=== PATIENT | female | born 1965 | race Caucasian/White ===

== ENCOUNTER → 2016-05-13 | Outpatient (REF) | payer OTHER ==
[2016-05-13 18:12] LABS: ANION GAP 9 MEQ/L (8-16); BLOOD UREA NITROGEN 19 MG/DL (7-18); CALCIUM LEVEL 8.8 MG/DL (8.5-10.1); CARBON DIOXIDE LEVEL 27 MEQ/L (21-32); CHLORIDE LEVEL 107 MEQ/L (98-107); CHOLESTEROL LEVEL 187 MG/DL (<200); CREATININE FOR GFR 0.96 MG/DL (0.55-1.02); GLOMERULAR FILTRATION RATE > 60.0 (>51); GLUCOSE, FASTING 72 MG/DL (70-105); POTASSIUM SERUM 4.7 MEQ/L (3.5-5.1); SODIUM LEVEL 143 MEQ/L (136-145); TRIGLYCERIDES LEVEL 128 MG/DL (<150)
== END ==
LOC: M SFHCLERA 11:00
PROVIDERS: ATTEND Family Medicine
DX: Z00.00 Encounter for general adult medical examination without abnormal findings (principal)

== ENCOUNTER → 2016-05-17 | Outpatient (CLI) | payer OTHER ==
--- NOTE | 2016-05-20 14:12 | REP ---
MRI LUMBAR SPINE WITHOUT CONTRAST: 05/17/2016. Clinical history: Low back pain. Radiculopathy. Osteoarthritis. Technique: Sagittal and axial T1 and T2 sequences provided. There were no prior studies. Findings: Normal lordosis is maintained. Vertebral body heights and marrow signal are normal throughout. There is loss of disc water signal at all levels in the lumbar spine and loss of disc height at L3-4 and above. The T10-11, T11-12 and T12-L1 levels all show mild disc bulges without significant spinal stenosis or gross evidence for foraminal encroachment. At L1-2 no significant spinal or foraminal stenosis noted. At L2-3 no significant spinal or foraminal stenosis noted. At L3-L4 broad-based disc bulge seen which extends into the foramen on both sides but no central canal stenosis, foraminal encroachment or nerve root compression. At L4-5 broad-based disc bulge extending into the left foramen flattening ventral thecal sac but not causing significant central canal stenosis or foraminal encroachment. At L5-S1 there is a small central disc protrusion with a broad-based disc bulge. This does not abut or displace the S1 nerve roots in the central canal. Cross-sectional area of the central canal adequate and the foramina show no nerve root compression. Impression: 1. Multilevel degenerative disc changes as described with small disc protrusion at L5-S1 not causing central canal stenosis and no foraminal encroachment at any level. Minimal disc bulges at other levels as described above. No compression deformity or destructive lesion. Signed by Joseph Benavidez MD 05/20/2016 02:34 P
== END ==
LOC: M RAD 16:25
PROVIDERS: ATTEND Family Medicine
DX: M47.25 Other spondylosis with radiculopathy, thoracolumbar region (principal)

== ENCOUNTER → 2016-06-18 | Outpatient (CLI) | payer OTHER ==
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
== END ==
LOC: M PAIN 13:20
PROVIDERS: ATTEND Nurse Practitioner Family
DX: G89.29 Other chronic pain (principal); M53.3 Sacrococcygeal disorders, not elsewhere classified; M51.26 Other intervertebral disc displacement, lumbar region; M54.16 Radiculopathy, lumbar region; E78.5 Hyperlipidemia, unspecified; M19.90 Unspecified osteoarthritis, unspecified site; I10 Essential (primary) hypertension; Z79.1 Long term (current) use of non-steroidal anti-inflammatories (NSAID); Z79.899 Other long term (current) drug therapy; Z91.410 Personal history of adult physical and sexual abuse

== ENCOUNTER → 2016-07-12 | Outpatient (CLI) | payer OTHER ==
[~2016-07-12] MED LIST: BUPIVACAINE HCL 0.25% 30 ML VIAL As Ordered ONE; ISOVUE-M 300 61% 15ML VIAL (Q9967) As Ordered ONE; LIDOCAINE 1% SDV INJ 30 ML VIAL As Ordered ONE; TRIAMCINOLONE ACETONIDE SUSP 40 MG/ML VIAL (J3301) As Ordered ONE; diazePAM 5 MG TAB As Ordered ONE; oxyCODONE 5MG TAB As Ordered ONE
--- NOTE | 2016-07-12 15:06 | REP ---
Partial SI joint series: Single view. History: SI joint injection for pain. 15 seconds of fluoroscopy time is reported. Findings: A single fluoroscopically obtained intraprocedural spot radiograph documents needle position and contrast injection associated with injection procedure. Signed by Darin Celis MD 07/12/2016 03:52 P
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
== END ==
LOC: M PAIN 11:00
PROVIDERS: ATTEND Anesthesiology
DX: G89.29 Other chronic pain (principal); M46.1 Sacroiliitis, not elsewhere classified; M54.5 Low back pain; Z79.899 Other long term (current) drug therapy; E78.5 Hyperlipidemia, unspecified; I10 Essential (primary) hypertension; F34.1 Dysthymic disorder; M47.816 Spondylosis without myelopathy or radiculopathy, lumbar region; F41.1 Generalized anxiety disorder
CPT/HCPCS: G0260; J3301; Q9967

== ENCOUNTER → 2016-08-28 | Outpatient (CLI) | payer OTHER ==
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
== END ==
LOC: M PAIN 13:20
PROVIDERS: ATTEND Nurse Practitioner Family
DX: G89.29 Other chronic pain (principal); M53.3 Sacrococcygeal disorders, not elsewhere classified; M51.26 Other intervertebral disc displacement, lumbar region; M54.16 Radiculopathy, lumbar region; E78.5 Hyperlipidemia, unspecified; M19.90 Unspecified osteoarthritis, unspecified site; I10 Essential (primary) hypertension; J30.89 Other allergic rhinitis; K59.00 Constipation, unspecified; Z79.1 Long term (current) use of non-steroidal anti-inflammatories (NSAID); Z79.52 Long term (current) use of systemic steroids; Z79.899 Other long term (current) drug therapy

== ENCOUNTER → 2016-08-30 | Outpatient (CLI) | payer OTHER ==
--- NOTE | 2016-08-31 07:26 | REP ---
LEFT SHOULDER: Four views left shoulder performed. There is no acute fracture or dislocation. Joint spaces are unremarkable in appearance. There are multiple old left rib fractures with healing callus formation. IMPRESSION: Unremarkable appearance left shoulder. Further evaluation may be made with MRI. Signed by Melchor Rabago MD 08/31/2016 07:44 P
== END ==
LOC: M LRY 15:24
PROVIDERS: ATTEND Family Medicine
DX: M75.42 Impingement syndrome of left shoulder (principal)

== ENCOUNTER 2016-10-22 10:15 | Emergency (ER) | payer OTHER ==
[~2016-10-22] VITALS: Ht 160 cm; Wt 68.8 kg
[2016-10-22 10:15] VITALS: BP 139/90
[2016-10-22] MEDS ORDERED: CELE1CAP4 PO (10:28)
[2016-10-22] MEDS ORDERED: SOMA250T PO (10:28)
[2016-10-22] MEDS ORDERED: BUPR10TASR PO (10:28)
[2016-10-22] MEDS ORDERED: FURO20TA2 PO (10:28)
[2016-10-22] MEDS ORDERED: ATOR40TA75 PO (10:28)
[2016-10-22] MEDS ORDERED: HYDR25TAB PO (10:28)
[2016-10-22] MEDS ORDERED: CLAR5TAB7 PO (10:50)
[2016-10-22] MEDS ORDERED: AUGM875T28 PO (10:50)
[2016-10-23] MEDS ORDERED: DIFL150T PO (08:08)
== END 2016-10-22 11:05 | disposition home or self-care (01) ==
LOC: M ED 10:15
DX: J01.90 Acute sinusitis, unspecified (principal); L60.0 Ingrowing nail

== ENCOUNTER → 2017-01-13 | Outpatient (REF) | payer OTHER ==
[~2017-01-13] MED LIST changes: +ATOR40TA75 PO; +AUGM875T28 PO; -BUPIVACAINE HCL 0.25% 30 ML VIAL As Ordered ONE; +BUPR10TASR PO; +CELE1CAP4 PO; +CLAR5TAB7 PO; +DIFL150T PO; +FURO20TA2 PO; +HYDR25TAB PO; -ISOVUE-M 300 61% 15ML VIAL (Q9967) As Ordered ONE; -LIDOCAINE 1% SDV INJ 30 ML VIAL As Ordered ONE; +SOMA250T PO; -TRIAMCINOLONE ACETONIDE SUSP 40 MG/ML VIAL (J3301) As Ordered ONE; -diazePAM 5 MG TAB As Ordered ONE; -oxyCODONE 5MG TAB As Ordered ONE
== END ==
LOC: M SFHCLERA 14:57
PROVIDERS: ATTEND Nurse Practitioner Family
DX: J02.9 Acute pharyngitis, unspecified (principal)

== ENCOUNTER → 2017-03-14 | Outpatient (CLI) | payer OTHER ==
--- NOTE | 2017-03-14 12:25 | REP ---
Clinical: thoracic pain. Technique: AP, lateral, and swimmers views. Findings: Alignment and kyphosis is maintained. Vertebral bodies intact. No acute fracture / compression injury or subluxation. Mild age related changes include anterior spurring at multiple thoracic levels. Impression: Minimal age-related degenerative changes. Signed by Bronson Sampson MD 03/14/2017 12:17 P
== END ==
LOC: M LRY 10:04
PROVIDERS: ATTEND Nurse Practitioner Family
DX: M62.838 Other muscle spasm (principal)

== ENCOUNTER → 2017-04-18 | Outpatient (CLI) | payer OTHER | LOC: M LRY 13:19 | DX: R05 Cough (principal) | CPT/HCPCS: 71020 ==

== ENCOUNTER → 2017-04-24 | Outpatient (CLI) | payer OTHER | LOC: M LRY 11:05 | DX: R05 Cough (principal) | CPT/HCPCS: 71046 ==

== ENCOUNTER → 2017-07-10 | Outpatient (REF) | payer OTHER | LOC: M SFHCLERA 17:06 | DX: J02.9 Acute pharyngitis, unspecified (principal) ==

== ENCOUNTER → 2017-10-21 | Outpatient (REF) | payer OTHER ==
[2017-10-21 17:22] LABS: BASO # 0.1 10^3/uL (0.0-0.2); BASO % 0.6 % (0.0-1.0); EOS # 0.2 10^3/uL (0.0-0.50); EOS % 1.3 % (0.0-3.0); HEMATOCRIT 44.4 % (36.0-47.0); HEMOGLOBIN 15.6 g/dl (12.0-15.5); IMMATURE GRANULOCYTE % 0.3 % (0-3.0); LYMPH # 3.6 10^3/uL (1.5-4.5); LYMPH % 28.6 % (24.0-44.0); MEAN CORPUSCULAR HEMOGLOBIN 31.8 pg (27.0-33.0); MEAN CORPUSCULAR HGB CONC 35.1 g/dl (32.0-36.5); MEAN CORPUSCULAR VOLUME 90.4 fl (80.0-96.0); MONO # 0.6 10^3/uL (0.0-0.8); MONO % 5.1 % (0.0-5.0); NEUTROPHILS # 8.1 10^3/uL (1.8-7.7); NEUTROPHILS % 64.1 % (36.0-66.0); PLATELET COUNT, AUTOMATED 319 10^3/uL (150-450); RED BLOOD COUNT 4.91 10^6/uL (4.00-5.40); RED CELL DISTRIBUTION WIDTH 12.4 % (11.5-14.5); WHITE BLOOD COUNT 12.6 10^3/uL (4.0-10.0)
[2017-10-21 17:37] LABS: ALBUMIN 4.1 GM/DL (3.2-5.2); ALBUMIN/GLOBULIN RATIO 1.21 (1.00-1.93); ALKALINE PHOSPHATASE 92 U/L (45-117); ALT/SGPT 28 U/L (12-78); ANION GAP 10 MEQ/L (8-16); AST/SGOT 10 U/L (7-37); BILIRUBIN,TOTAL 0.3 MG/DL (0.2-1.0); BLOOD UREA NITROGEN 26 MG/DL (7-18); CALCIUM LEVEL 9.3 MG/DL (8.5-10.1); CARBON DIOXIDE LEVEL 29 MEQ/L (21-32); CHLORIDE LEVEL 102 MEQ/L (98-107); CREATININE FOR GFR 1.01 MG/DL (0.55-1.30); FREE T4 1.01 NG/DL (0.76-1.46); GLOMERULAR FILTRATION RATE > 60.0 (>51); GLUCOSE, FASTING 92 MG/DL (70-100); POTASSIUM SERUM 3.8 MEQ/L (3.5-5.1); SODIUM LEVEL 141 MEQ/L (136-145); TOTAL PROTEIN 7.5 GM/DL (6.4-8.2)
== END ==
LOC: M SFHCLERA 11:05
DX: R53.83 Other fatigue (principal)
CPT/HCPCS: 84443

== ENCOUNTER → 2017-11-04 | Outpatient (REF) | payer OTHER | LOC: M SFHCLERA 11:25 | DX: J02.9 Acute pharyngitis, unspecified (principal) ==

== ENCOUNTER → 2017-11-04 | Outpatient (CLI) | payer OTHER | LOC: M LRY 12:07 | DX: R06.2 Wheezing (principal) | CPT/HCPCS: 71046 ==

== ENCOUNTER → 2017-11-10 | Outpatient (REF) | payer OTHER ==
[2017-11-10 17:24] LABS: RHEUMATOID FACTOR QUANT < 10.0 IU/ML (<15.0)
[2017-11-10 17:24] LABS: C REACTIVE PROTEIN QUANTITATIV < 0.30 MG/DL (0.00-0.30)
[2017-11-10 17:34] LABS: BASO # 0.1 10^3/uL (0.0-0.2); BASO % 0.5 % (0.0-1.0); EOS # 0.1 10^3/uL (0.0-0.50); EOS % 1.1 % (0.0-3.0); HEMATOCRIT 45.5 % (36.0-47.0); HEMOGLOBIN 15.9 g/dl (12.0-15.5); IMMATURE GRANULOCYTE % 0.5 % (0-3.0); LYMPH % 35.9 % (24.0-44.0); MEAN CORPUSCULAR HEMOGLOBIN 31.5 pg (27.0-33.0); MEAN CORPUSCULAR HGB CONC 34.9 g/dl (32.0-36.5); MEAN CORPUSCULAR VOLUME 90.1 fl (80.0-96.0); MONO # 0.5 10^3/uL (0.0-0.8); MONO % 4.7 % (0.0-5.0); NEUTROPHILS # 6.3 10^3/uL (1.8-7.7); NEUTROPHILS % 57.3 % (36.0-66.0); PLATELET COUNT, AUTOMATED 343 10^3/uL (150-450); RED BLOOD COUNT 5.05 10^6/uL (4.00-5.40); RED CELL DISTRIBUTION WIDTH 12.3 % (11.5-14.5); WHITE BLOOD COUNT 11.1 10^3/uL (4.0-10.0)
[2017-11-10 18:00] LABS: ERYTHROCYTE SEDIMENTATION RATE 9 mm/hr (0-30); REASON FOR REVIEW WBC/LEUKEMIA/BLAST; SLIDE REVIEW Report; SOURCE PERIPHERAL SMEAR
[2017-11-13 00:09] LABS: ANA (HEP2) Negative (.)
== END ==
LOC: M SFHCLERA 12:28
DX: D72.829 Elevated white blood cell count, unspecified (principal)

== ENCOUNTER → 2018-01-01 | Outpatient (REF) | payer OTHER ==
[2018-01-04 00:06] LABS: Lyme Disease IgG Ab 18 kDa Ban Absent (.); Lyme Disease IgG Ab 23 kDa Ban Absent (.); Lyme Disease IgG Ab 28 kDa Ban Absent (.); Lyme Disease IgG Ab 30 kDa Ban Absent (.); Lyme Disease IgG Ab 39 kDa Ban Absent (.); Lyme Disease IgG Ab 41 kDa Ban Absent (.); Lyme Disease IgG Ab 45 kDa Ban Absent (.); Lyme Disease IgG Ab 58 kDa Ban Absent (.); Lyme Disease IgG Ab 66 kDa Ban Absent (.); Lyme Disease IgG Ab 93 kDa Ban Absent (.); Lyme Disease IgG West Blot Int Negative (.); Lyme Disease IgG/IgM Antibodie <0.91 ISR (0.00-0.90); Lyme Disease IgM Ab 23 kDa Ban Present (.); Lyme Disease IgM Ab 39 kDa Ban Present (.); Lyme Disease IgM Ab 41 kDa Ban Present (.); Lyme Disease IgM Ab Quantitati 0.98 index (0.00-0.79); Lyme Disease IgM West Blot Int Positive (.)
== END ==
LOC: M SFHCLERA 08:44
DX: R53.83 Other fatigue (principal)
CPT/HCPCS: 86617

== ENCOUNTER 2018-03-31 16:24 | Emergency (ER) | payer OTHER ==
[2018-03-31] MEDS: ONDANSETRON 4 MG ORAL DISINTEGRATING TAB (Q0162 PER 1MG) PO (18:05)
[2018-03-31] MEDS: PERCOCET 5MG/325MG TAB PO (18:05)
== END 2018-03-31 19:07 | disposition home or self-care (01) ==
LOC: M ED 16:24
DX: S06.0X9A Concussion with loss of consciousness of unspecified duration, initial encounter (principal); S43.401A Unspecified sprain of right shoulder joint, initial encounter; S13.4XXA Sprain of ligaments of cervical spine, initial encounter; S40.012A Contusion of left shoulder, initial encounter; V49.40XA Driver injured in collision with unspecified motor vehicles in traffic accident, initial encounter; I10 Essential (primary) hypertension; E78.5 Hyperlipidemia, unspecified; J44.9 Chronic obstructive pulmonary disease, unspecified; F17.210 Nicotine dependence, cigarettes, uncomplicated
CPT/HCPCS: Q0162

== ENCOUNTER → 2018-05-13 | Outpatient (REF) | payer OTHER ==
[~2018-05-13] MED LIST changes: +CYCL10TA PO; +CYCL5TAB; +HYDR-3713; +TYLE650T35 PO; +ZOFR4TAB14 PO
[2018-05-13 13:34] LABS: HEMATOCRIT 47.7 % (36.0-47.0); HEMOGLOBIN 17.4 g/dl (12.0-15.5); MEAN CORPUSCULAR HEMOGLOBIN 31.9 pg (27.0-33.0); MEAN CORPUSCULAR HGB CONC 36.5 g/dl (32.0-36.5); MEAN CORPUSCULAR VOLUME 87.5 fl (80.0-96.0); PLATELET COUNT, AUTOMATED 388 10^3/uL (150-450); RED BLOOD COUNT 5.45 10^6/uL (4.00-5.40)
[2018-05-13 13:45] LABS: APPEARANCE, URINE HAZY (CLEAR); BACTERIA, URINE AUTO 1+ (NEGATIVE); BILIRUBIN, URINE AUTO NEGATIVE (NEGATIVE); BLOOD, URINE BLOOD NEGATIVE (NEGATIVE); COLOR, URINE YELLOW (YELLOW); GLUCOSE, URINE (UA) AUTO NEGATIVE (NEGATIVE); KETONE, URINE AUTO NEGATIVE (NEGATIVE); LEUKOCYTE ESTERASE, URINE AUTO 2+ (NEGATIVE); NITRITE, URINE AUTO NEGATIVE (NEGATIVE); PROTEIN, URINE AUTO NEGATIVE (NEGATIVE); RBC, URINE AUTO 1 /HPF (0-3); SPECIFIC GRAVITY URINE AUTO 1.012 (1.002-1.035); SQUAMOUS EPITHELIAL CELL UR AU 3 /HPF (0-6); UROBILINOGEN, URINE AUTO 0.2 mg/dL (0.0-2.0); WBC, URINE AUTO 7 /HPF (0-3)
[2018-05-13 13:59] LABS: WHITE BLOOD COUNT 14.7 10^3/uL (4.0-10.0)
[2018-05-13 14:03] LABS: EOSINOPHILS 3 % (0-5); LYMPHOCYTES 34 % (16-52); MONOCYTES 13 % (0-8); NEUTROPHILS 50 % (35-75); PLATELET ESTIMATE NORMAL (NORMAL)
[2018-05-13 15:16] LABS: ERYTHROCYTE SEDIMENTATION RATE 2 mm/hr (0-30)
== END ==
LOC: M LABDRAW1 12:04
PROVIDERS: ATTEND Internal Medicine Endocrinology, Diabetes & Metabolism
DX: M54.2 Cervicalgia (principal)

== ENCOUNTER → 2018-07-04 | Outpatient (REF) | payer OTHER | LOC: M SFHCLERA 17:02 | PROVIDERS: ATTEND Physician Assistant | DX: R50.9 Fever, unspecified (principal) ==

== ENCOUNTER → 2018-08-03 | Outpatient (REF) | payer OTHER ==
[2018-08-03 18:53] LABS: APPEARANCE, URINE HAZY (CLEAR); BACTERIA, URINE AUTO 1+ (NEGATIVE); BILIRUBIN, URINE AUTO NEGATIVE (NEGATIVE); BLOOD, URINE BLOOD NEGATIVE (NEGATIVE); COLOR, URINE YELLOW (YELLOW); GLUCOSE, URINE (UA) AUTO NEGATIVE (NEGATIVE); KETONE, URINE AUTO NEGATIVE (NEGATIVE); LEUKOCYTE ESTERASE, URINE AUTO NEGATIVE (NEGATIVE); MUCUS, URINE SMALL (NEGATIVE); NITRITE, URINE AUTO NEGATIVE (NEGATIVE); PROTEIN, URINE AUTO NEGATIVE (NEGATIVE); RBC, URINE AUTO 0 /HPF (0-3); SPECIFIC GRAVITY URINE AUTO 1.011 (1.002-1.035); SQUAMOUS EPITHELIAL CELL UR AU 2 /HPF (0-6); UROBILINOGEN, URINE AUTO 0.2 mg/dL (0.0-2.0); WBC, URINE AUTO 2 /HPF (0-3)
== END ==
LOC: M SFHCLERA 13:12
PROVIDERS: ATTEND Family Medicine
DX: N39.41 Urge incontinence (principal)

== ENCOUNTER 2018-09-07 10:49 | Emergency (ER) | payer OTHER ==
[~2018-09-07] VITALS: Ht 160 cm; Wt 72.7 kg
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
[2018-09-07] MEDS ORDERED: MORPHINE 4 MG/ML 1ML VIAL/SYRINGE (J2270) IV ONE (11:45)
[2018-09-07] MEDS ORDERED: ONDANSETRON 4MG/2ML VIAL (J2405) IV ONE (11:45)
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
[2018-09-07] MEDS ORDERED: POTA10TA17 PO (12:15)
[2018-09-07] MEDS ORDERED: FURO40TA2 PO (12:15)
[2018-09-07] MEDS ORDERED: PSEU30TA85 PO (12:15)
[2018-09-07] MEDS ORDERED: CELE1CAP4 PO (12:15)
[2018-09-07] MEDS ORDERED: ATOR40TA75 PO (12:15)
[2018-09-07] MEDS ORDERED: FLON1SPR NARES (12:15)
[2018-09-07] MEDS ORDERED: BUPR300T34 PO (12:15)
[2018-09-07] MEDS ORDERED: LACT10SO29 PO (12:15)
[2018-09-07] MEDS ORDERED: TOPI50TA9 PO (12:15)
[2018-09-07] MEDS ORDERED: HYDR25TAB PO (12:15)
[2018-09-07] MEDS ORDERED: AUGM875T28 PO (12:15)
[2018-09-07] MEDS ORDERED: OXYC1TAB23 PO (12:15)
[2018-09-07 12:20] LABS: BASO # 0.1 10^3/uL (0.0-0.2); BASO % 0.8 % (0.0-1.0); EOS # 0.1 10^3/uL (0.0-0.50); EOS % 0.7 % (0.0-3.0); HEMOGLOBIN 15.8 g/dl (12.0-15.5); LYMPH # 3.3 10^3/uL (1.5-4.5); LYMPH % 30.2 % (24.0-44.0); MEAN CORPUSCULAR HEMOGLOBIN 32.2 pg (27.0-33.0); MEAN CORPUSCULAR HGB CONC 35.9 g/dl (32.0-36.5); MEAN CORPUSCULAR VOLUME 89.6 fl (80.0-96.0); MONO # 0.8 10^3/uL (0.0-0.8); MONO % 7.5 % (0.0-5.0); NEUTROPHILS # 6.5 10^3/uL (1.8-7.7); NEUTROPHILS % 60.2 % (36.0-66.0); PLATELET COUNT, AUTOMATED 319 10^3/uL (150-450); RED BLOOD COUNT 4.91 10^6/uL (4.00-5.40); WHITE BLOOD COUNT 10.9 10^3/uL (4.0-10.0)
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
[2018-09-07 12:46] LABS: CALCIUM LEVEL 9.6 MG/DL (8.5-10.1); CREATININE FOR GFR 1.06 MG/DL (0.55-1.30); GLOMERULAR FILTRATION RATE 57.7 (>51); POTASSIUM SERUM 2.5 MEQ/L (3.5-5.1)
[2018-09-07 12:59] LABS: MAGNESIUM LEVEL 1.8 MG/DL (1.8-2.4)
--- NOTE | 2018-09-07 13:05 | REP ---
PELVIS, SINGLE VIEW: Single AP view of the pelvis is performed and demonstrates no fracture, dislocation, or intrinsic bone disease. IMPRESSION: No fracture or dislocation. Electronically Signed by Melchor Rabago MD 09/07/2018 07:48 P
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
--- NOTE | 2018-09-07 13:06 | REP ---
LEFT HIP, TWO VIEWS: There is no evidence of an acute fracture, dislocation or intrinsic bone disease. IMPRESSION: No fracture or dislocation. Electronically Signed by Melchor Rabago MD 09/07/2018 07:48 P
--- NOTE | 2018-09-07 13:11 | REP ---
LEFT FEMUR, AP AND LATERAL: There is no evidence of an acute fracture, dislocation or intrinsic bone disease. IMPRESSION: No fracture or dislocation. Electronically Signed by Melchor Rabago MD 09/07/2018 07:48 P
[2018-09-07] MEDS ORDERED: K-TA1TAB PO (13:48)
[2018-09-07] MEDS ORDERED: PERC5TAB12 PO (13:49)
[2018-09-07] MEDS ORDERED: PERCOCET 5MG/325MG TAB PO ONE (14:00)
[2018-09-07 14:06] VITALS: BP 124/82
[2018-09-07] MEDS ORDERED: POTASSIUM CHLORIDE 10 MEQ SR TABLET PO ONE ×2 (14:15→20:00)
--- NOTE | 2018-09-07 23:54 | ECGEPIP ---
Stationary ECG Study [facility] - ED Test Date: 2018-09-07 Pat Name: CHANDA BOWIE Department: Room: - Gender: F Coding Assistant: TC : 1965 Requested By: Sirisha Epperson Order Number: [id number] Reading MD: Juvenal Awad Measurements Intervals [place] Rate: 80 P: 55 SC: 151 QRS: -47 QRSD: 106 T: 17 QT: 387 QTc: 447 Interpretive Statements SINUS RHYTHM POSSIBLE LEFT ATRIAL ENLARGEMENT INCOMPLETE RIGHT BUNDLE BRANCH BLOCK Left anterior fascicular block Comparison tracing not on file Electronically Signed On 09-07-2018 23:54:28 EDT by Juvenal Awad
== END 2018-09-07 14:28 | disposition home or self-care (01) ==
LOC: EDBD 10:49 → M ED 10:49
DX: M54.2 Cervicalgia (principal); M54.9 Dorsalgia, unspecified; E87.6 Hypokalemia; V49.40XA Driver injured in collision with unspecified motor vehicles in traffic accident, initial encounter; Y92.9 Unspecified place or not applicable; Y93.9 Activity, unspecified; Y99.9 Unspecified external cause status; R00.1 Bradycardia, unspecified; I10 Essential (primary) hypertension; M51.26 Other intervertebral disc displacement, lumbar region; M51.27 Other intervertebral disc displacement, lumbosacral region; M47.812 Spondylosis without myelopathy or radiculopathy, cervical region; Z79.899 Other long term (current) drug therapy
CPT/HCPCS: 70450; 71045; 72125; 72128; 72131; 72170; 73502; 73552; 73590; 80048; 83735; 85025; 86850; 86900; 86901; 93005; 96374; 96375; 99285; J2270; J2405

== ENCOUNTER → 2018-10-05 | Outpatient (CLI) | payer OTHER ==
[~2018-10-05] MED LIST changes: +BUPR300T34 PO; +FLON1SPR NARES; +FURO40TA2 PO; +K-TA1TAB PO; +LACT10SO29 PO; +OXYC1TAB23 PO; +PERC5TAB12 PO; +POTA10TA17 PO; +PSEU30TA85 PO; +TOPI50TA9 PO
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
== END ==
LOC: M LRY 11:41
PROVIDERS: ATTEND Nurse Practitioner Family
DX: R06.02 Shortness of breath (principal)

== ENCOUNTER → 2019-01-14 | Outpatient (CLI) | payer OTHER ==
[~2019-01-14] MED LIST changes: -BUPR300T34 PO; +BUPR300T92 PO
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
== END ==
LOC: M LRY 13:45
PROVIDERS: ATTEND Physician Assistant
DX: R06.2 Wheezing (principal)

== ENCOUNTER → 2019-01-28 | Outpatient (CLI) | payer OTHER, SELFPAY ==
[~2019-01-28] MED LIST changes: +BUPR300T34 PO; -BUPR300T92 PO
[2019-01-28 12:26] LABS: INR 0.94; PARTIAL THROMBOPLASTIN TIME 26.9 SECONDS (25.0-38.4); PROTHROMBIN TIME 12.3 SECONDS (11.8-14.0)
[2019-01-28 16:38] LABS: PLATELET COUNT, AUTOMATED 326 10^3/uL (150-450)
== END ==
LOC: M LRY 09:46
PROVIDERS: ATTEND Physician Assistant Surgical
DX: Z01.812 Encounter for preprocedural laboratory examination (principal); M47.22 Other spondylosis with radiculopathy, cervical region

== ENCOUNTER → 2019-01-28 | Outpatient (REF) | payer OTHER ==
[2019-01-28 12:52] LABS: CHOLESTEROL RISK RATIO 5.078 (<5)
== END ==
LOC: M SFHCLERA 09:17
PROVIDERS: ATTEND Family Medicine
DX: Z13.1 Encounter for screening for diabetes mellitus (principal); E78.2 Mixed hyperlipidemia

== ENCOUNTER 2020-04-28 12:48 | Emergency (ER) | payer OTHER ==
[~2020-04-28] VITALS: Ht 160 cm; Wt 75.7 kg
[~2020-04-28 12:48] MED LIST changes: +ACET650T61 PO; -BUPR300T34 PO; +BUPR300T92 PO; +CYCL-707 PO; -CYCL10TA PO; -LACT10SO29 PO; +LACT20EL PO; -TYLE650T35 PO
[2020-04-28] MEDS ORDERED: FURO20TA2 (13:00)
[2020-04-28] MEDS ORDERED: KETO10TAB (13:00)
[2020-04-28] MEDS ORDERED: methylPREDNISolone SUSP 40MG/ML 1ML VIAL (DEPO MEDROL) IM ONE (13:30)
--- NOTE | 2020-04-28 13:50 | REP ---
INDICATION: left shoulder pain, limited rom. Left shoulder: Three views. History: Left shoulder pain. Limited range of motion. COMPARISON: Comparison radiographs March 31, 2018.. TECHNIQUE: Three views. FINDINGS: The left glenohumeral and acromioclavicular joints are normally aligned. Periarticular soft tissues are unremarkable. No erosive changes are seen. There are multiple old healed rib fractures on the left. IMPRESSION: No acute bony abnormality. Old healed rib fractures on the left. <Electronically signed by Edinson Celis > 04/28/20 [id number]
[2020-04-28] MEDS ORDERED: methylPREDNISolone 125MG 2ML VIAL IM ONE (14:30)
[2020-04-28] MEDS ORDERED: VOLT1GEL15 TOP (14:47)
[2020-04-28 14:53] VITALS: BP 119/77
== END 2020-04-28 15:03 | disposition home or self-care (01) ==
LOC: M ED 12:48
DX: M25.512 Pain in left shoulder (principal); J44.9 Chronic obstructive pulmonary disease, unspecified; I10 Essential (primary) hypertension; E78.5 Hyperlipidemia, unspecified; Z79.899 Other long term (current) drug therapy; F17.210 Nicotine dependence, cigarettes, uncomplicated
CPT/HCPCS: 73030; 96372; 99283; J2930

== ENCOUNTER → 2020-05-26 | Outpatient (REF) | payer OTHER ==
[~2020-05-26] MED LIST changes: +FURO20TA2; +HYDR-3490 PO; -HYDR25TAB PO; +KETO10TAB; +VOLT1GEL15 TOP
[2020-05-26 12:51] LABS: APPEARANCE, URINE CLEAR (CLEAR); BACTERIA, URINE AUTO NEGATIVE (NEGATIVE); BILIRUBIN, URINE AUTO NEGATIVE (NEGATIVE); BLOOD, URINE BLOOD NEGATIVE (NEGATIVE); COLOR, URINE YELLOW (YELLOW); GLUCOSE, URINE (UA) AUTO NEGATIVE (NEGATIVE); KETONE, URINE AUTO NEGATIVE (NEGATIVE); LEUKOCYTE ESTERASE, URINE AUTO NEGATIVE (NEGATIVE); NITRITE, URINE AUTO NEGATIVE (NEGATIVE); PROTEIN, URINE AUTO NEGATIVE (NEGATIVE); RBC, URINE AUTO 0 /HPF (0-3); SPECIFIC GRAVITY URINE AUTO 1.015 (1.002-1.035); SQUAMOUS EPITHELIAL CELL UR AU 1 /HPF (0-6); UROBILINOGEN, URINE AUTO 0.2 mg/dL (0.0-2.0); WBC, URINE AUTO 0 /HPF (0-3)
[2020-05-26 12:56] LABS: BASO # 0.1 10^3/uL (0.0-0.2); BASO % 0.5 % (0.0-1.0); EOS # 0.2 10^3/uL (0.0-0.5); EOS % 1.6 % (0.0-3.0); HEMATOCRIT 43.8 % (36.0-47.0); HEMOGLOBIN 14.8 g/dl (12.0-15.5); LYMPH # 3.8 10^3/uL (1.5-5.0); MEAN CORPUSCULAR HEMOGLOBIN 30.8 pg (27.0-33.0); MEAN CORPUSCULAR HGB CONC 33.8 g/dl (32.0-36.5); MEAN CORPUSCULAR VOLUME 91.3 fl (80.0-96.0); MONO # 0.7 10^3/uL (0.0-0.8); MONO % 6.8 % (0.0-5.0); NEUTROPHILS % 51.8 % (36.0-66.0); PLATELET COUNT, AUTOMATED 285 10^3/uL (150-450); WHITE BLOOD COUNT 9.7 10^3/uL (4.0-10.0)
[2020-05-26 13:31] LABS: ERYTHROCYTE SEDIMENTATION RATE 11 mm/hr (0-30)
[2020-05-26 13:36] LABS: ALBUMIN 3.7 GM/DL (3.2-5.2); ALT/SGPT 25 U/L (12-78); BILIRUBIN,TOTAL 0.2 MG/DL (0.2-1.0); BLOOD UREA NITROGEN 25 MG/DL (7-18); CALCIUM LEVEL 9.9 MG/DL (8.5-10.1); CARBON DIOXIDE LEVEL 28 MEQ/L (21-32); CHLORIDE LEVEL 105 MEQ/L (98-107); CREATININE FOR GFR 0.86 MG/DL (0.55-1.30); FREE T4 0.89 NG/DL (0.76-1.46); GLOMERULAR FILTRATION RATE > 60.0 (>51); GLUCOSE, FASTING 92 MG/DL (70-100); POTASSIUM SERUM 4.4 MEQ/L (3.5-5.1); RHEUMATOID FACTOR QUANT < 10.0 IU/ML (<15.0); SODIUM LEVEL 140 MEQ/L (136-145); TOTAL PROTEIN 6.8 GM/DL (6.4-8.2)
[2020-05-26 13:46] LABS: HEPATITIS B SURFACE ANTIGEN NEGATIVE (NEGATIVE)
[2020-05-26 14:13] LABS: HEPATITIS C VIRUS ABY INDEX < 0.0 INDEX (<0.8)
[2020-05-26 14:14] LABS: HEPATITIS B CORE ANTIBODY IGM NEGATIVE (NEGATIVE)
[2020-05-26 14:16] LABS: HEPATITIS A ANTIBODY IGM NEGATIVE (NEGATIVE)
[2020-05-27 20:08] LABS: ANA (HEP2) Negative (.)
[2020-05-30 11:53] LABS: ALBUMIN 4.18 GM/DL (3.29-5.55); ALBUMIN % 61.4 % (55.8-66.1); ALPHA-1-GLOBULIN % 4.8 % (2.9-4.9); ALPHA-1-GLOBULINS 0.33 GM/DL (0.17-0.41); ALPHA-2-GLOBULINS % 11.8 % (7.1-11.8); BETA-1-GLOBULINS 0.43 GM/DL (0.28-0.60); BETA-1-GLOBULINS % 6.3 % (4.7-7.2); BETA-2-GLOBULINS 0.31 GM/DL (0.19-0.55); BETA-2-GLOBULINS % 4.6 % (3.2-6.5); GAMMA GLOBULIN % 11.1 % (11.1-18.8); GAMMA GLOBULINS 0.75 GM/DL (0.65-1.58)
== END ==
LOC: M SFHCLERA 10:58 → M SFHCADAM 10:58
PROVIDERS: ATTEND Family Medicine
DX: I10 Essential (primary) hypertension (principal); R21 Rash and other nonspecific skin eruption

== ENCOUNTER → 2020-09-12 | Outpatient (CLI) | payer OTHER ==
--- NOTE | 2020-09-12 11:03 | REP ---
INDICATION: LT SIDE NECK SWELLING COMPARISON: None. TECHNIQUE: Rabago scale and color evaluation using the linear high frequency transducer. FINDINGS: Directed ultrasound examination of the left supraclavicular region at the site of palpable mass demonstrates no obvious abnormality. IMPRESSION: No obvious abnormality by ultrasound. <Electronically signed by Bronson Sampson > 09/12/20 1058
== END ==
LOC: M RAD 10:24
PROVIDERS: ATTEND Nurse Practitioner Family
DX: R22.2 Localized swelling, mass and lump, trunk (principal)

== ENCOUNTER → 2020-09-19 | Outpatient (REF) | payer OTHER | LOC: M LAB REF 10:06 | PROVIDERS: ATTEND Family Medicine | DX: R10.13 Epigastric pain (principal) ==

== ENCOUNTER → 2020-10-17 | Outpatient (REF) | payer OTHER | LOC: M SFHCLERA 18:26 | PROVIDERS: ATTEND Nurse Practitioner Family | DX: R35.0 Frequency of micturition (principal) ==

== ENCOUNTER → 2021-02-08 | Outpatient (CLI) | payer OTHER ==
[~2021-02-08] MED LIST changes: +HYDR-3713 PO; +IBUP80TA PO; +KETO10TAB PO; +LISI20TA33 PO; +MUCI1TAB16 PO; +NASA0.9A NARES; -PSEU30TA85 PO; +PSEU30TA86 PO; +SENN-80 PO
== END ==
LOC: M LABSMTC 10:57
PROVIDERS: ATTEND Pediatrics
DX: Z20.822 Contact with and (suspected) exposure to COVID-19 (principal)
CPT/HCPCS: C9803; U0003

== ENCOUNTER 2021-02-10 09:55 | Emergency (ER) | payer OTHER ==
[~2021-02-10] VITALS: Ht 160 cm; Wt 74.5 kg
[~2021-02-10 09:55] MED LIST changes: -HYDR-3713 PO; -IBUP80TA PO; -KETO10TAB PO; -LISI20TA33 PO; -MUCI1TAB16 PO; -NASA0.9A NARES; -SENN-80 PO
--- OUTSIDE RECORDS SUMMARY | 2021-02-10 10:04 | CCD ---
Author Author [facility] Organization [facility] Address Unknown Phone Unavailable Care Team Providers Care Building Coordinator Name Role Phone Uri, Barby Unavailable PROBLEMS Type Condition ICD9-CM Code [id number] Code Onset Dates Condition S tatus W/U Status Risk SNOMED Code Notes Problem Hyperlipidemia, unspecified hyperlipidemia type E7 8.5 Active confirmed 30271114 Problem Arthritis M19.90 Active confirmed 5139132 Problem Essential hypertension I10 Active confirmed 68549548 Problem Cervical spondylosis M47.812 Active confirmed 756042600 Problem Constipation, unspecified constipation type K59.00 Active confirmed 26447654 Problem Generalized anxiety disorder F41.1 Active confirme d 32559846 Problem 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.816 Active confirmed 88991011 Problem Allergic rhinitis, unspecified seasonality, unspecifie d trigger J30.9 Active confirmed 74574959 Problem Mixed hyperlipidemia E78.2 Active confirmed 107918696 ALLERGIES Allergen (clinical drug ingredient) Drug/Non Drug Allergy do cumented on EMR Reaction Allergy Type Onset Date Status Pollen Pollen Unknown Drug Allergy Active ENCOUNTERS from 1965 to 2021-02-07 Encounter Location Date Provider Diagnosis [address] [phone] [place] [address] Jan, Barby Grewal IMMUNIZATIONS Vaccine Route Administration Date Status Influenza 6mo & up Fluzone Unknown Mar 14, 2017 Other s Influenza 6mo & up Fluzone Unknown May 13, 2016 Other s Influenza 6mo & up Fluzone Unknown Dec 20, 2015 Admin istered SOCIAL HISTORY Tobacco Use: Social History Observation Description Date Details (start date - stop date) Former Smoker Sex Assigned At : Social History Observation Description Sex Assigned At Unknown Education: Question Answer Notes Level of Education: Not finished High School Druze: Question Answer Notes Druze 32 None Sexual Hx: Question Answer Notes Had sex in the last 12 months (vaginal, oral, or anal)? No LMP: 1994 Have you ever had an STD? No Alcohol Screening: Question Answer Notes Did you have a drink containing alcohol in the past year? No Points 0 Interpretation Negative BMI Care Goal Follow-Up Question Answer Notes Above Normal BMI Follow-Up Dietary management educatio n, guidance, and counseling Tobacco Use: Question Answer Notes Are you a: former smoker REASON FOR REFERRAL No Information VITAL SIGNS No information MEDICATIONS Medication SIG (Take, Route, Frequency, Duration) Notes Start Da te End Date Status MiraLax 17 GM/SCOOP 17gms Orally Daily for 30 Days PRN May, Active Acetaminophen 500 MG 1 tablet as needed Orally every 6 hrs for 9 0 day(s) Apr, Active Wellbutrin XL 300 MG 1 tablet in the morning Orally Once a day Active Lisinopril 20 MG 1 tablet Orally Once a day Active Diflucan 150 MG 1 tablet Orally Daily for 2 days Can rep eat at 48 hours if symptoms have not resolved Sep, Not-Taking Senna 8.6 MG 2 capsules at bedtime as needed Orally Once a day for 90 Active Ketorolac Tromethamine 10 MG 1 tablet with food or mil k as needed Orally every 6 hrs for 30 Days Jul, Active Lipitor 40 MG 1 tablet Orally Once a day Active Omeprazole 20 MG 1 capsule 30 minutes before morning meal Orally Once a day for 30 day(s) Sep, Active PROCEDURES No Information RESULTS No Results REASON FOR VISIT possible COVID exposure w/ sx MEDICAL (GENERAL) HISTORY Type Description Date Medical History Hyperlipidemia, unspecified hyperlipidem ia type Medical History Arthritis Medical History Essential hypertension Medical History anxiety/depression Medical History allergic rhinitis Surgical History Thoracic T11-12 back surgery 1995 Surgical History Hysterectomy 1994 Surgical History Small toe on right foot Surgical History C 5-7 ACDF [place] 10/03/2020 Hospitalization History Childbirth 1991 Goals Section No Information Health Concerns No Information MEDICAL EQUIPMENT No Information MENTAL STATUS No Information FUNCTIONAL STATUS No Information ASSESSMENTS No Information PLAN OF TREATMENT No Information Insurance Providers Payer Name Payer Address Payer Phone Insured Name Patient Relati onship to Insured Coverage Start Date Coverage End Date [employer] [facility] [address] [facility] [phone] CHANDA BOWIE [employer] NO FAULT [address] [facility] [address] [phone] CHANDA BOWIE
--- OUTSIDE RECORDS SUMMARY | 2021-02-10 10:05 | CCD ---
Author Author [facility] Organization [facility] Address Unknown Phone Unavailable Care Team Providers Care Audit Clerks Supervisor Name Role Phone Tadeo Cervantes JR Unavailable Unavailable Tadeo Cervantes JR Unavailable Unavailable Tadeo Cervantes JR PA Unavailable Unavailable Tadeo Cervantes JR PA Unavailable Unavailable Tadeo Cervantes JR PA Unavailable Unavailable Caranam Tadeo SWANSON PA Unavailable Unavailable VanArnam Tadeo SWANSON PA Unavailable Unavailable VanArnam Tadeo SWANSON PA Unavailable Unavailable Tadeo Cervantes JR PA Unavailable Unavailable VanArnam Tadeo SWANSON PA Unavailable Unavailable VanArnam Tadeo SWANSON PA Unavailable Unavailable VanTadeo Newton JR PA Unavailable Unavailable VanArnam JR, W Ibrahima PA Unavailable Unavailable VanArnam JR, W Ibrahima PA Unavailable Unavailable VanArnam JR, W Ibrahima PA Unavailable Unavailable VanArnam JR, W Ibrahima PA Unavailable Unavailable VanArnam JR, W Ibrahima PA Unavailable Unavailable VanArnam JR, W Ibrahima PA Unavailable Unavailable VanArnam JR, W Ibrahima PA Unavailable Unavailable VanArnam JR, W Ibrahima PA Unavailable Unavailable VanArnam JR, W Ibrahima PA Unavailable Unavailable VanArnam JR, W Ibrahima PA Unavailable Unavailable VanArnam JR, W Ibrahima PA Unavailable Unavailable VanArnam JR, W Ibrahima PA Unavailable Unavailable VanArnam JR, W Ibrahima PA Unavailable Unavailable VanArnam JR, W Ibrahima PA Unavailable Unavailable VanArnam JR, W Ibrahima PA Unavailable Unavailable VanArnam JR, W Ibrahima PA Unavailable Unavailable VanArnam JR, W Ibrahima PA Unavailable Unavailable VanArnam JR, W Ibrahima PA Unavailable Unavailable VanArnam JR, W Ibrahima PA Unavailable Unavailable VanArnam JR, W Ibrahima PA Unavailable Unavailable VanArnam JR, W Ibrahima PA Unavailable Unavailable VanArnam JR, W Ibrahima PA Unavailable Unavailable VanArnam JR, W Ibrahima PA Unavailable Unavailable VanArnam JR, W Ibrahima PA Unavailable Unavailable VanArnam JR, W Ibrahima PA Unavailable Unavailable VanArnam JR, W Ibrahima PA Unavailable Unavailable VanArnam JR, W Ibrahima PA Unavailable Unavailable VanArnam JR, W Ibrahima PA Unavailable Unavailable VanArnam JR, W Ibrahima PA Unavailable Unavailable VanArnam JR, W Ibrahima PA Unavailable Unavailable VanArnam JR, W Ibrahima PA Unavailable Unavailable Julito HOYOS MD Unavailable Unavailable Julito HOYOS MD Unavailable Unavailable Julito HOYOS MD Unavailable Unavailable Julito HOYOS MD Unavailable Unavailable Julito HOYOS MD Unavailable Unavailable Julito HOYOS MD Unavailable Unavailable Julito HOYOS MD Unavailable Unavailable Julito HOYOS MD Unavailable Unavailable Julito HOYOS MD Unavailable Unavailable Julito HOYOS MD Unavailable Unavailable Julito HOYOS MD Unavailable Unavailable Julito HOYOS MD Unavailable Unavailable Julito HOYOS MD Unavailable Unavailable Julito HOYOS MD Unavailable Unavailable Julito HOYOS MD Unavailable Unavailable Julito HOYOS MD Unavailable Unavailable Julito HOYOS MD Unavailable Unavailable Julito HOYOS MD Unavailable Unavailable Julito HOYOS MD Unavailable Unavailable Julito HOYOS MD Unavailable Unavailable Julito HOYOS MD Unavailable Unavailable Julito HOYOS MD Unavailable Unavailable Julito HOYOS MD Unavailable Unavailable Julito HOYOS MD Unavailable Unavailable Julito HOOYS MD Unavailable Unavailable Julito HOYOS MD Unavailable Unavailable Julito HOYOS MD Unavailable Unavailable Julito HOYOS MD Unavailable Unavailable Julito HOYOS MD Unavailable Unavailable Julito HOYOS MD Unavailable Unavailable Julito HOYOS MD Unavailable Unavailable Julito HOYOS MD Unavailable Unavailable Julito HOYOS MD Unavailable Unavailable Julito HOYOS MD Unavailable Unavailable Julito HOYOS MD Unavailable Unavailable Julito HOYOS MD Unavailable Unavailable Julito HOYOS MD Unavailable Unavailable Julito HOYOS MD Unavailable Unavailable Julito HOYOS MD Unavailable Unavailable Julito HOYOS MD Unavailable Unavailable Julito HOYOS MD Unavailable Unavailable Julito HOYOS MD Unavailable Unavailable Julito HOYOS MD Unavailable Unavailable Julito HOYOS MD Unavailable Unavailable Julito HOYOS MD Unavailable Unavailable Julito HOYOS MD Unavailable Unavailable Julito HOYOS MD Unavailable Unavailable Julito HOYOS MD Unavailable Unavailable Julito HOYOS MD Unavailable Unavailable Nghia LION MD Unavailable Unavailable Nghia LION MD Unavailable Unavailable Nghia LION MD Unavailable Unavailable Nghia LION MD Unavailable Unavailable Nghia LION MD Unavailable Unavailable Nghia LION MD Unavailable Unavailable Nghia LION MD Unavailable Unavailable Nghia LION MD Unavailable Unavailable Nghia LION MD Unavailable Unavailable Nghia LION MD Unavailable Unavailable Nghia LION MD Unavailable Unavailable Nghia LION MD Unavailable Unavailable Nghia LION MD Unavailable Unavailable Nghia LION MD Unavailable Unavailable Nghia LION MD Unavailable Unavailable Nghia LION MD Unavailable Unavailable Nghia LION MD Unavailable Unavailable Nghia LION MD Unavailable Unavailable Nghia LION MD Unavailable Unavailable Nghia LION MD Unavailable Unavailable Nghia LION MD Unavailable Unavailable Nghia LION MD Unavailable Unavailable Nghia LION MD Unavailable Unavailable Nghia LION MD Unavailable Unavailable Nghia LION MD Unavailable Unavailable Nghia LION MD Unavailable Unavailable Nghia LION MD Unavailable Unavailable Nghia LION MD Unavailable Unavailable Nghia LION MD Unavailable Unavailable Nghia LION MD Unavailable Unavailable Nghia LION MD Unavailable Unavailable Nghia LION MD Unavailable Unavailable Nghia LION MD Unavailable Unavailable Nghia LION MD Unavailable Unavailable Nghia LION MD Unavailable Unavailable Nghia LION MD Unavailable Unavailable Nghia LION MD Unavailable Unavailable Nghia LION MD Unavailable Unavailable Nghia LION MD Unavailable Unavailable Nghia LION MD Unavailable Unavailable Nghia LION MD Unavailable Unavailable Nghia LION MD Unavailable Unavailable Nghia LION MD Unavailable Unavailable Nghia LION MD Unavailable Unavailable Nghia LION MD Unavailable Unavailable Nghia LION MD Unavailable Unavailable Nghia LION MD Unavailable Unavailable Nghia LION MD Unavailable Unavailable Nghia LION MD Unavailable Unavailable Nghia LION MD Unavailable Unavailable Nghia LION MD Unavailable Unavailable Nghia LION MD Unavailable Unavailable Nghia LION MD Unavailable Unavailable Nghia LION MD Unavailable Unavailable Nghia LION MD Unavailable Unavailable Nghia LION MD Unavailable Unavailable Nghia LION MD Unavailable Unavailable Nghia LION MD Unavailable Unavailable Nghia LION MD Unavailable Unavailable Nghia LION MD Unavailable Unavailable Nghia LION MD Unavailable Unavailable Nghia LION MD Unavailable Unavailable Nghia LION MD Unavailable Unavailable Nghia LION MD Unavailable Unavailable Nghia LION MD Unavailable Unavailable Nghia LION MD Unavailable Unavailable Nghia LION MD Unavailable Unavailable Nghia LION MD Unavailable Unavailable Nghia LION MD Unavailable Unavailable Nghia LION MD Unavailable Unavailable Nghia LION MD Unavailable Unavailable Nghia LION MD Unavailable Unavailable Nghia LION MD Unavailable Unavailable Nghia LION MD Unavailable Unavailable Nghia LION MD Unavailable Unavailable Nghia LION MD Unavailable Unavailable Nghia LION MD Unavailable Unavailable Nghia LION MD Unavailable Unavailable Nghia LION MD Unavailable Unavailable Nghia LION MD Unavailable Unavailable Nghia LION MD Unavailable Unavailable Nghia LION MD Unavailable Unavailable Nghia LION MD Unavailable Unavailable Nghia LION MD Unavailable Unavailable Nghia LION MD Unavailable Unavailable Nghia LION MD Unavailable Unavailable Nghia LION MD Unavailable Unavailable Nghia LION MD Unavailable Unavailable Nghia LION MD Unavailable Unavailable Nghia LION MD Unavailable Unavailable Nghia LION MD Unavailable Unavailable Nghia LION MD Unavailable Unavailable Nghia LION MD Unavailable Unavailable Nghia LION MD Unavailable Unavailable Re-disclosure Warning The records that you are about to access may contain information from federally-assisted alcohol or drug abuse programs. If such information is present, then the following federally mandated warning applies: This information has been disclosed to you from records protected by federal confidentiality rules (42 CFR part 2). The federal rules prohibit you from making any further disclosure of this information unless further disclosure is expressly permitted by the written consent of the person to whom it pertains or as otherwise permitted by 42 CFR part 2. A general authorization for the release of medical or other information is NOT sufficient for this purpose. The Federal rules restrict any use of the information to criminally investigate or prosecute any alcohol or drug abuse patient.The records that you are about to access may contain highly sensitive health information, the redisclosure of which is protected by Article 27-F of the [facility] Public Health law. If you continue you may have access to information: Regarding HIV / AIDS; Provided by facilities licensed or operated by the [facility] Office of Mental Health; or Provided by the [facility] Office for People With Developmental Disabilities. If such information is present, then the following [facility] mandated warning applies: This information has been disclosed to you from confidential records which are protected by state law. State law prohibits you from making any further disclosure of this information without the specific written consent of the person to whom it pertains, or as otherwise permitted by law. Any unauthorized further disclosure in violation of state law may result in a fine or long term sentence or both. A general authorization for the release of medical or other information is NOT sufficient authorization for further disc losure. Family History Family Member Name Family Member Gender Family Member Status Date o f Status Description Data Source(s) Unknown Male Problem [facility] ([facility]) Encounters Encounter Providers Location Date Indications Data Source(s ) Unknown [address] [facility], [facility] [address] 02/07/2021 12:00:00 AM EDT eCW1 ([facility]) Outpatient Attender: Ibrahima Cervantes JRReferrer: JIAN CISNEROS MD 01/29/2021 08:29:42 PM EDT [facility] Outpatient Attender: DWIGHT LION MDReferrer: JIAN MERINO MD 11/16/2020 01:33:34 PM EDT [facility] Recurring Patient Referrer: JIAN HOYOS MD 11/15/2020 08: 09:57 AM EDT [facility] Outpatient Attender: Ibrahima Cervantes JRReferrer: JIAN CISNEROS MD 10/24/2020 10:16:48 AM EDT [facility] [place] [address] [facility] [facility] [address] 10/18/2020 12:00:00 AM EDT eCW1 ([facility]) Outpatient [address] [facility] [place] [address] 10/17/2020 12:00:00 AM EDT eCW1 ([facility]) Recurring Patient Referrer: JIAN HOYOS MD 10/13/2020 10: 33:43 AM EDT [facility] [place] [address] [facility] [address] 10/13/2020 12:00:00 AM EDT eCW1 ([facility]) [place] [address] [facility] [facility] [address] 10/04/2020 12:00:00 AM EDT eCW1 ([facility] Outpatient Attender: DWIGHT LION MDReferrer: JIAN MERINO MD 09/28/2020 01:37:00 PM EDT [facility] [place] [address] [facility] [facility] [address] 09/22/2020 12:00:00 AM EDT eCW1 ([facility]) [place]patient [address] [facility], [place] [address] 09/14/2020 12:00:00 AM EDT eCW1 ([facility]) Unknown [address], [facility] [address] 09/12/2020 12:00:00 AM EDT eCW1 ([facility]) Recurring Patient Referrer: JIAN HOYOS MD 09/11/2020 07: 41:22 AM EDT [facility] Outpatient Attender: DWIGHT LION MDReferrer: JIAN MERINO MD 08/24/2020 01:39:43 PM EDT [facility] Recurring Patient Referrer: JIAN HOYOS MD 08/24/2020 01: 05:29 PM EDT [facility] Outpatient [address] [facility] [address] 08/24/2020 12:00:00 AM EDT eCW1 ([facility]) Outpatient Attender: DWIGHT LINO MDReferrer: JIAN MERINO MD 08/03/2020 11:23:22 AM EDT [facility] Recurring Patient Referrer: JIAN HOYOS MD 08/03/2020 10: 36:51 AM EDT [facility] Recurring Patient Referrer: JIAN HOYOS MD 08/03/2020 10: 35:27 AM EDT [facility] Recurring Patient Referrer: JIAN HOYOS MD 08/03/2020 10: 21:16 AM EDT [facility] Recurring Patient Referrer: JIAN HOYOS MD 08/02/2020 07: 20:41 AM EDT [facility] Recurring Patient Referrer: JIAN HOYOS MD 08/01/2020 12: 18:21 PM EDT [facility] Recurring Patient Referrer: JIAN HOYOS MD 08/01/2020 12: 18:08 PM EDT [facility] Recurring Patient Referrer: JIAN HOYOS MD 07/31/2020 10: 58:03 AM EDT [facility] Recurring Patient Referrer: JIAN HOYOS MD 07/26/2020 10: 52:07 AM EDT [facility] [place] [address] [facility] [address] 06/02/2020 12:00:00 AM EST eCW1 ([facility]) Recurring Patient Referrer: JIAN HOYOS MD 05/29/2020 10: 00:33 AM EST [facility] Recurring Patient Referrer: JIAN HOYOS MD 05/29/2020 09: 17:19 AM EST [facility] Recurring Patient Referrer: JIAN HOYOS MD 05/26/2020 03: 43:46 PM EST [facility] Outpatient [address] [facility] [address] 05/25/2020 12:00:00 AM EST eCW1 ([facility]) Unknown [address] [facility] [address] 05/25/2020 12:00:00 AM EST eCW1 ([facility]) Unknown [address] [facility] [place] [address] 04/28/2020 12:00:00 AM EST eCW1 ([facility]) Unknown [address] [facility] [address] 04/26/2020 12:00:00 AM EST eCW1 ([facility]) Medications Medication Brand Name Start Date Product Form Dose Route Admi nistrative Instructions Pharmacy Instructions Status Indications Reaction Description Data Source(s) Fluconazole 150 MG Oral Tablet [Diflucan] Diflucan 150 MG Di flucan 150 MG 10/04/2020 12:00:00 AM EDT 1.0 {tablet} suspended Diflucan 150 MG [facility] Fluconazole 150 MG Oral Tablet [Diflucan] Diflucan 150 MG Di flucan 150 MG 10/04/2020 12:00:00 AM EDT 1.0 {tablet} active Diflucan 150 MG [facility]CW[facility]) Fluconazole 150 MG Oral Tablet [Diflucan] Diflucan 150 MG Di flucan 150 MG 10/04/2020 12:00:00 AM EDT 1.0 {tablet} active Diflucan 150 MG [facility]CW1 [facility]) Fluconazole 150 MG Oral Tablet [Diflucan] Diflucan 150 MG Di flucan 150 MG 10/04/2020 12:00:00 AM EDT 1.0 {tablet} suspended Diflucan 150 MG [facility]CW1 [facility]) Fluconazole 150 MG Oral Tablet [Diflucan] Diflucan 150 MG Di flucan 150 MG 10/04/2020 12:00:00 AM EDT 1.0 {tablet} suspended Diflucan 150 MG [facility]CW1 [facility]) Omeprazole 20 MG Delayed Release Oral Capsule Omeprazole 20 MG 09/22/2020 12:00:00 AM EDT active Omeprazo le 20 MG eCW1 ([facility]) Omeprazole 20 MG Delayed Release Oral Capsule Omeprazole 20 MG 09/22/2020 12:00:00 AM EDT active Omeprazo le 20 MG [facility]CW1 ([facility]) Omeprazole 20 MG Delayed Release Oral Capsule Omeprazole 20 MG 09/22/2020 12:00:00 AM EDT active Omeprazo le 20 MG eCW1 ([facility]) Omeprazole 20 MG Delayed Release Oral Capsule Omeprazole 20 MG 09/22/2020 12:00:00 AM EDT active Omeprazo le 20 MG eCW1 ([facility]) Omeprazole 20 MG Delayed Release Oral Capsule Omeprazole 20 MG 09/22/2020 12:00:00 AM EDT active Omeprazo le 20 MG [facility]CW1 [facility]) Omeprazole 20 MG Delayed Release Oral Capsule Omeprazole 20 MG 09/22/2020 12:00:00 AM EDT active Omeprazo le 20 MG [facility]) Amoxicillin 875 MG / Clavulanate 125 MG Oral Tablet Amoxicillin-Pot Clavulanate 875-125 MG Amoxicillin-Pot Clavulanate 875-125 MG 08/24/2020 12:00:00 AM ED T 1.0 {tablet} active Amoxicillin-Pot Cla vulanate 875-125 MG eCW1 ([facility]) Amoxicillin 875 MG / Clavulanate 125 MG Oral Tablet Amoxicillin-Pot Clavulanate 875-125 MG Amoxicillin-Pot Clavulanate 875-125 MG 08/24/2020 12:00:00 AM ED T 1.0 {tablet} active Amoxicillin-Pot Cla vulanate 875-125 MG eCW1 [facility]) POLYETHYLENE GLYCOL 3350 142 MG/ML Oral Solution [Lucita lax] MiraLax 17 GM/SCOOP MiraLax 17 GM/SCOOP 05/25/2020 12:00:00 AM EST active MiraLax 17 GM/SCOOP [facility]CW[facility] ([facility]) Senna 8.6 MG Senna 8.6 MG 05/25/2020 12:00:00 AM EST 2 .0 {capsules_at_bedtime_as_needed} active Senna 8.6 MG eCW1 ([facility]) Lisinopril 20 MG Oral Tablet Lisinopril 20 MG 05/25/2020 12:00:00 A M EST 1.0 {tablet} active Lisinopril 20 MG [facility]CW1 ( [facility]) POLYETHYLENE GLYCOL 3350 142 MG/ML Oral Solution [Lucita lax] MiraLax 17 GM/SCOOP MiraLax 17 GM/SCOOP 05/25/2020 12:00:00 AM EST active MiraLax 17 GM/SCOOP eCW1 ([facility]) POLYETHYLENE GLYCOL 3350 142 MG/ML Oral Solution [Lucita lax] MiraLax 17 GM/SCOOP MiraLax 17 GM/SCOOP 05/25/2020 12:00:00 AM EST active MiraLax 17 GM/SCOOP eCW1 ([facility]) POLYETHYLENE GLYCOL 3350 142 MG/ML Oral Solution [Lucita lax] MiraLax 17 GM/SCOOP MiraLax 17 GM/SCOOP 05/25/2020 12:00:00 AM EST active MiraLax 17 GM/SCOOP eCW1 ([facility]) Lisinopril 20 MG Oral Tablet Lisinopril 20 MG 05/25/2020 12:00:00 A M EST 1.0 {tablet} active Lisinopril 20 MG eCW1 ( [facility]) POLYETHYLENE GLYCOL 3350 142 MG/ML Oral Solution [Lucita lax] MiraLax 17 GM/SCOOP MiraLax 17 GM/SCOOP 05/25/2020 12:00:00 AM EST active MiraLax 17 GM/SCOOP eCW1 ([facility]) POLYETHYLENE GLYCOL 3350 142 MG/ML Oral Solution [Lucita lax] MiraLax 17 GM/SCOOP MiraLax 17 GM/SCOOP 05/25/2020 12:00:00 AM EST active MiraLax 17 GM/SCOOP eCW1 ([facility]) POLYETHYLENE GLYCOL 3350 142 MG/ML Oral Solution [Lucita lax] MiraLax 17 GM/SCOOP MiraLax 17 GM/SCOOP 05/25/2020 12:00:00 AM EST active MiraLax 17 GM/SCOOP eCW1 ([facility]) POLYETHYLENE GLYCOL 3350 142 MG/ML Oral Solution [Lucita lax] MiraLax 17 GM/SCOOP MiraLax 17 GM/SCOOP 05/25/2020 12:00:00 AM EST active MiraLax 17 GM/SCOOP eCW1 ([facility]) Lisinopril 20 MG Oral Tablet Lisinopril 20 MG 05/25/2020 12:00:00 A M EST 1.0 {tablet} active Lisinopril 20 MG eCW1 ( [facility]) POLYETHYLENE GLYCOL 3350 142 MG/ML Oral Solution [Lucita lax] MiraLax 17 GM/SCOOP MiraLax 17 GM/SCOOP 05/25/2020 12:00:00 AM EST active MiraLax 17 GM/SCOOP eCW1 ([facility]) Lisinopril 20 MG Oral Tablet Lisinopril 20 MG 05/25/2020 12:00:00 A M EST 1.0 {tablet} active Lisinopril 20 MG [facility]CW1 ( [facility]) Senna 8.6 MG Senna 8.6 MG 05/25/2020 12:00:00 AM EST 2 .0 {capsules_at_bedtime_as_needed} active Senna 8.6 MG eCW1 ([facility]) POLYETHYLENE GLYCOL 3350 142 MG/ML Oral Solution [Lucita lax] MiraLax 17 GM/SCOOP MiraLax 17 GM/SCOOP 05/25/2020 12:00:00 AM EST active MiraLax 17 GM/SCOOP eCW1 ([facility]) POLYETHYLENE GLYCOL 3350 142 MG/ML Oral Solution [Lucita lax] MiraLax 17 GM/SCOOP MiraLax 17 GM/SCOOP 05/25/2020 12:00:00 AM EST active MiraLax 17 GM/SCOOP eCW1 ([facility]) Senna 8.6 MG Senna 8.6 MG 05/25/2020 12:00:00 AM EST 2 .0 {capsules_at_bedtime_as_needed} active Senna 8.6 MG eCW1 ([facility]) POLYETHYLENE GLYCOL 3350 142 MG/ML Oral Solution [Ulcita lax] MiraLax 17 GM/SCOOP MiraLax 17 GM/SCOOP 05/25/2020 12:00:00 AM EST active MiraLax 17 GM/SCOOP eCW1 ([facility]) Insurance Providers Payer name Policy type / Coverage type Policy ID Covered constitution party ID Covered constitution party's relationship to nesbitt Policy Nesbitt Plan Information [facility] Community Plan Medigap Part B [id number] Self [id number] [facility] Community Plan Commercial [id number] Self [id number] [facility] Community Plan Medigap Part B [id number] Self [id number] [facility] Community Plan Commercial [id number] Self [id number] [facility] Community Plan Medigap Part B [id number] Self [id number] [facility] Community Plan Medigap Part B [id number] Self [id number] [facility] Community Plan Commercial [id number] Self [id number] Count Includes [facility] Plan Medigap Part B [id number] Self [id number] Count Includes [facility] Plan [employer]igap Part B [id number] Self [id number] Count Includes [facility] Plan [employer] Part B [id number] Self [id number] Count Includes [facility] Plan Commercial [id number] Self [id number] [employer] [place] [id number] Self [id number] [employer] [place] [id number] Self [id number] [employer] [id number] Self [id number] [employer] [id number] Self [id number] [employer] [id number] Self [id number] [employer] [id number] Self [id number] [employer] [place] [id number] Self [id number] Medicaid [facility] S D [id number] SELF [id number] [facility] Comm Plan Medicaid F [id number] SELF [id number] [facility] [place] 4[place] [id number] SELF [id number] ANSI-Medicaid [id number] ANSI-Medicaid [id number] ANSI-Commercial [id number] ANSI-Medicaid [id number] ANSI-Commercial [id number] ANSI-Medicaid [id number] ANSI-Commercial [id number] ANSI-Medicaid [id number] ANSI-Commercial [id number] ANSI-Medicaid [id number] ANSI-Commercial [id number] ANSI-Commercial [id number] ANSI-Medicaid [id number] ANSI-Medicaid [id number] ANSI-Commercial [id number] ANSI-Commercial [id number] ANSI-Medicaid [id number] ANSI-Medicaid [id number] ANSI-Commercial [id number] ANSI-Medicaid [id number] ANSI-Commercial [id number] [facility] NO FAULT O [id number] S [id number] ANSI-Medicaid [id number] ANSI-Commercial [id number] ANSI-Commercial [id number] ANSI-Medicaid [id number] ANSI-Commercial [id number] ANSI-Medicaid [id number] ANSI-Commercial [id number] ANSI-Medicaid [id number] ANSI-Commercial [id number] ANSI-Medicaid [id number] [facility] NO FAULT [id number] SP [id number] ANSI-Medicaid [id number] ANSI-Medicaid [id number] ANSI-Medicaid [id number] ANSI-Medicaid [id number] ANSI-Medicaid [id number] ANSI-Medicaid [id number] ANSI-Medicaid 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 errors. Please call with any questions. Signatures Huii kyler signed by : Dwight Lion M.D.; Aug 03 2020 11:23AM EST (Author) Name Value Range Interpretation Code Description Data Jill rce(s) Supporting Document(s) ID Date Data Source Comprehensive Metabolic Profile (CMP) 05/26/2020 12:00:00 AM EST [facility] Name Value Range Interpretation Code Description Data Jill rce(s) Supporting Document(s) 0.86 0.55-1.30 eCW1 ([facility]) 92 70-100 eCW1 ([facility]) 25 7-18 eCW1 ([facility]) 4.4 3.5-5.1 eCW1 ([facility]) 28 21-32 eCW1 ([facility]) 140 136-145 eCW1 ([facility]) 105 98-107 eCW1 ([facility]) > 60.0 >51 eCW1 ([facility]) 25 12-78 eCW1 ([facility]) 9.9 8.5-10.1 eCW1 ([facility]) 7 7-37 eCW1 ([facility]) 104 45-117 eCW1 ([facility]) 0.2 0.2-1.0 eCW1 ([facility]) 1.2 1.2-2.2 eCW1 ([facility]) 3.7 3.2-5.2 eCW1 ([facility]) 6.8 6.4-8.2 eCW1 ([facility]) ID Date Data Source SERUM PROTEIN ELECTROPHORESIS (SPEP) 05/26/2020 12:00:00 AM EST [facility]CW1 [facility] Name Value Range Interpretation Code Description Data Jill rce(s) Supporting Document(s) 4.8 2.9-4.9 eCW1 ([facility]) 61.4 55.8-66.1 eCW1 ([facility]) 11.8 7.1-11.8 eCW1 ([facility]) 4.6 3.2-6.5 eCW1 ([facility]) 6.3 4.7-7.2 eCW1 ([facility]) 11.1 11.1-18.8 eCW1 ([facility]) 4.18 3.29-5.55 eCW1 ([facility]) 0.33 0.17-0.41 eCW1 ([facility]) 0.43 0.28-0.60 eCW1 ([facility]) 0.80 0.42-0.99 eCW1 ([facility]) 0.75 0.65-1.58 eCW1 ([facility]) 0.31 0.19-0.55 eCW1 ([facility]) 6.8 6.4-8.2 eCW1 ([facility]) SEE COMMENT eCW1 ([facility]) ID Date Data Source ERYTHROCYTE SEDIMENTATION RATE 05/26/2020 12:00:00 AM EST eC W1 [facility] Name Value Range Interpretation Code Description Data Jill rce(s) Supporting Document(s) 11 0-30 eCW1 ([facility]) ID Date Data Source C REACTIVE PROTEIN QUANTITATIV ([facility]) 05/26/2020 12:00 :00 AM EST eCW1 [facility]) Name Value Range Interpretation Code Description Data Jill rce(s) Supporting Document(s) 0.30 0.00-0.30 eCW1 ([facility]) ID Date Data Source RHEUMATOID FACTOR QUANT 05/26/2020 12:00:00 AM EST eCW1 ([facility]) Name Value Range Interpretation Code Description Data Jill rce(s) Supporting Document(s) < 10.0 <15.0 eCW1 ([facility]) ID Date Data Source ANGUS TITER & PATTERN 05/26/2020 12:00:00 AM EST eCW1 ([facility]) Name Value Range Interpretation Code Description Data Jill rce(s) Supporting Document(s) Negative . eCW1 ([facility]) ID Date Data Source UA URINALYSIS 05/26/2020 12:00:00 AM EST eCW1 ([facility]) Name Value Range Interpretation Code Description Data Jill rce(s) Supporting Document(s) eCW1 ([facility]) ID Date Data Source HEPATITIS PROFILE ACUTE 05/26/2020 12:00:00 AM EST eCW1 ([facility]) Name Value Range Interpretation Code Description Data Jill rce(s) Supporting Document(s) < 0.0 <0.8 eCW1 ([facility]) NEGATIVE NEGATIVE eCW1 ([facility]) NEGATIVE NEGATIVE eCW1 ([facility]) NEGATIVE NEGATIVE eCW1 ([facility]) ID Date Data Source FREE T4 & TSH PANEL 05/26/2020 12:00:00 AM EST eCW1 ([facility]) Name Value Range Interpretation Code Description Data Jill rce(s) Supporting Document(s) 2.450 0.358-3.740 THYROID STIMULATING HORM ONE eCW1 ([facility]) 0.89 0.76-1.46 FREE T4 eCW1 ([facility]) ID Date Data Source CBC with Differential 05/26/2020 12:00:00 AM EST eCW1 ([facility]) Name Value Range Interpretation Code Description Data Jill rce(s) Supporting Document(s) 4.80 4.00-5.40 RED BLOOD COUNT eCW1 ([facility]) 9.7 4.0-10.0 WHITE BLOOD COUNT eCW1 ([facility]) 43.8 36.0-47.0 HEMATOCRIT eCW1 ([facility]) 91.3 80.0-96.0 MEAN CORPUSCULAR VOLUME e CW1 ([facility]) 30.8 27.0-33.0 MEAN CORPUSCULAR HEMOGLOB IN eCW1 ([facility]) 14.8 12.0-15.5 HEMOGLOBIN eCW1 ([facility]) 285 150-450 PLATELET COUNT, AUTOMATED eCW1 ([facility]) 33.8 32.0-36.5 MEAN CORPUSCULAR HGB CONC eCW1 ([facility]) 51.8 36.0-66.0 NEUTROPHILS % eCW1 ([facility]) 12.0 11.5-14.5 RED CELL DISTRIBUTION WID TH eCW1 ([facility]) 39.0 24.0-44.0 LYMPH % eCW1 ([facility]) 0.5 0.0-1.0 BASO % eCW1 ([facility]) 1.6 0.0-3.0 EOS % eCW1 ([facility]) 6.8 0.0-5.0 MONO % eCW1 ([facility]) 0.2 0.0-0.5 EOS # eCW1 ([facility]) 3.8 1.5-5.0 LYMPH # eCW1 ([facility]) 0.7 0.0-0.8 MONO # eCW1 ([facility]) 5.0 1.5-8.5 NEUTROPHILS # eCW1 [facility]) 0.1 0.0-0.2 BASO # eCW1 ([facility]) Procedure Social History Code Duration Value Status Description Data Source(s ) Smoking 02/05/2021 12:00:00 AM EDT Former Smoker completed Former Smoker [facility]) Smoking 10/17/2020 12:00:00 AM EDT Former Smoker completed Former Smoker eCW1 [facility]) Smoking 10/17/2020 12:00:00 AM EDT Former Smoker completed Former Smoker eCW1 [facility]) Smoking 09/14/2020 12:00:00 AM EDT Former Smoker completed Former Smoker eCW1 [facility]) Smoking 09/14/2020 12:00:00 AM EDT Former Smoker completed Former Smoker eCW1 [facility]) Smoking 09/14/2020 12:00:00 AM EDT Former Smoker completed Former Smoker eCW1 [facility]) Smoking 09/14/2020 12:00:00 AM EDT Former Smoker completed Former Smoker eCW1 [facility]) Smoking 08/24/2020 12:00:00 AM EDT Former Smoker completed Former Smoker eCW1 [facility]) Smoking 08/24/2020 12:00:00 AM EDT Former Smoker completed Former Smoker eCW1 [facility]) Smoking 05/25/2020 12:00:00 AM EST Former Smoker completed Former Smoker eCW1 [facility]) Smoking 05/25/2020 12:00:00 AM EST Former Smoker completed Former Smoker eCW1 [facility]) Smoking 05/25/2020 12:00:00 AM EST Former Smoker completed Former Smoker eCW1 [facility]) Vital Signs ID Date Data Source UNK Name Value Range Interpretation Code Description Data Source(s) Body weight 166 [lb_av] 166 [lb_av] eCW1 ([facility]) Body height 63 [in_i] 63 [in_i] eCW1 ([facility]) Body mass index (BMI) [Ratio] 29.40 kg/m2 29.40 kg/m2 eCW1 [facility]) Heart rate 82 /min 82 /min eCW1 ([facility]) Respiratory rate 18 /min 18 /min eCW1 ([facility]) Body temperature 98.3 [degF] 98.3 [degF] eCW1 ( [facility] Systolic blood pressure 118 mm[Hg] 118 mm[Hg] e CW1 ([facility]) Diastolic blood pressure 88 mm[Hg] 88 mm[Hg] eCW1 [facility]) Body weight 172 [lb_av] 172 [lb_av] eCW1 ([facility]) Body height 63 [in_i] 63 [in_i] eCW1 ([facility]) Body mass index (BMI) [Ratio] 30.47 kg/m2 30.47 kg/m2 eCW1 [facility]) Heart rate 71 /min 71 /min eCW1 ([facility]) Respiratory rate 17 /min 17 /min eCW1 ([facility]) Body temperature 97.7 [degF] 97.7 [degF] eCW1 ( [facility]) Systolic blood pressure 136 mm[Hg] 136 mm[Hg] e CW1 ([facility]) Diastolic blood pressure 88 mm[Hg] 88 mm[Hg] eCW1 [facility]) Body weight 165 [lb_av] 165 [lb_av] eCW1 ([facility]) Body height 63 [in_i] 63 [in_i] eCW1 ([facility]) Body mass index (BMI) [Ratio] 29.23 kg/m2 29.23 kg/m2 eCW1 [facility]) Heart rate 79 /min 79 /min eCW1 ([facility]) Respiratory rate 18 /min 18 /min eCW1 ([facility]) Body temperature 98.5 [degF] 98.5 [degF] eCW1 ( [facility]) Systolic blood pressure 133 mm[Hg] 133 mm[Hg] e CW1 ([facility]) Diastolic blood pressure 95 mm[Hg] 95 mm[Hg] eCW1 [facility]) Body temperature 98.6 [degF] 98.6 [degF] eCW1 ( [facility] Body weight 166 [lb_av] 166 [lb_av] eCW1 ([facility]) Body height 63 [in_i] 63 [in_i] eCW1 ([facility]) Body mass index (BMI) [Ratio] 29.40 kg/m2 29.40 kg/m2 eCW1 [facility]) Respiratory rate 18 /min 18 /min eCW1 ([facility]) Systolic blood pressure 151 mm[Hg] 151 mm[Hg] e CW1 ([facility]) Heart rate 88 /min 88 /min eCW1 ([facility]) Diastolic blood pressure 92 mm[Hg] 92 mm[Hg] eCW1 [facility] Patient Treatment Plan of Care Planned Activity Planned Date Details Description Data Source (s) Fluconazole 150 MG Oral Tablet [Diflucan] 10/04/2020 12:00:00 AM ED T eCW1 [facility] Fluconazole 150 MG Oral Tablet [Diflucan] 10/04/2020 12:00:00 AM ED T eCW1 [facility]) Omeprazole 20 MG Delayed Release Oral Capsule 09/22/2020 12:00:00 A M EDT eCW1 [facility]) Omeprazole 20 MG Delayed Release Oral Capsule 09/22/2020 12:00:00 A M EDT eCW1 [facility]) Omeprazole 20 MG Delayed Release Oral Capsule 09/22/2020 12:00:00 A M EDT eCW1 [facility]) Amoxicillin 875 MG / Clavulanate 125 MG Oral Tablet 08/25/19 12:00:00 AM EDT eCW1 ([facility]) Amoxicillin 875 MG / Clavulanate 125 MG Oral Tablet 08/25/19 12:00:00 AM EDT eCW1 ([facility]) Lisinopril 20 MG Oral Tablet 05/25/2020 12:00:00 AM EST eCW1 [facility]) POLYETHYLENE GLYCOL 3350 142 MG/ML Oral Solution [Lucita lax] 05/25/2020 12:00:00 AM EST eCW1 ([facility]) Senna 8.6 MG 05/25/2020 12:00:00 AM EST e CW1 ([facility]) Lisinopril 20 MG Oral Tablet 05/25/2020 12:00:00 AM EST eCW1 [facility]) POLYETHYLENE GLYCOL 3350 142 MG/ML Oral Solution [Lucita lax] 05/25/2020 12:00:00 AM EST eCW1 ([facility]) Senna 8.6 MG 05/25/2020 12:00:00 AM EST e CW1 ([facility]) Lisinopril 20 MG Oral Tablet 05/25/2020 12:00:00 AM EST eCW1 ([facility]) POLYETHYLENE GLYCOL 3350 142 MG/ML Oral Solution [Lucita lax] 05/25/2020 12:00:00 AM EST eCW1 ([facility]) Senna 8.6 MG 05/25/2020 12:00:00 AM EST e CW1 [facility]
[2021-02-10] MEDS ORDERED: KETO10TAB PO (10:07)
[2021-02-10] MEDS ORDERED: BUPR300T92 PO (10:07)
[2021-02-10] MEDS ORDERED: SENN-80 PO (10:07)
[2021-02-10] MEDS ORDERED: LISI20TA33 PO (10:07)
[2021-02-10] MEDS ORDERED: HYDR-3713 PO (10:07)
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
[2021-02-10] MEDS ORDERED: NASA0.9A NARES (12:00)
[2021-02-10] MEDS ORDERED: IBUP80TA PO (12:00)
[2021-02-10] MEDS ORDERED: MUCI1TAB16 PO (12:00)
[2021-02-10] MEDS ORDERED: FLON1SPR NARES (12:00)
[2021-02-10 12:08] VITALS: BP 111/78
== END 2021-02-10 12:14 | disposition home or self-care (01) ==
LOC: M ED 09:55
DX: J06.9 Acute upper respiratory infection, unspecified (principal); M54.2 Cervicalgia; I10 Essential (primary) hypertension; J44.9 Chronic obstructive pulmonary disease, unspecified; Z87.891 Personal history of nicotine dependence; Z79.899 Other long term (current) drug therapy

== ENCOUNTER → 2021-02-22 | Outpatient (REF) | payer OTHER ==
[~2021-02-22] MED LIST changes: +HYDR-3713 PO; +IBUP80TA PO; +KETO10TAB PO; +LISI20TA33 PO; +MUCI1TAB16 PO; +NASA0.9A NARES; +SENN-80 PO
== END ==
LOC: M SFHCPLAZ 09:54
PROVIDERS: ATTEND Physician Assistant
DX: R05.9 Cough, unspecified (principal)

== ENCOUNTER 2021-04-30 13:20 | Emergency (ER) | payer OTHER ==
[~2021-04-30] VITALS: Ht 160 cm; Wt 77.8 kg
[2021-04-30] MEDS ORDERED: PRED10TA2 PO (15:11)
[2021-04-30 15:36] VITALS: BP 135/91
== END 2021-04-30 15:38 | disposition home or self-care (01) ==
LOC: M ED 13:20
DX: M51.37 Other intervertebral disc degeneration, lumbosacral region (principal); M54.42 Lumbago with sciatica, left side; S30.0XXA Contusion of lower back and pelvis, initial encounter; X58.XXXA Exposure to other specified factors, initial encounter; Y92.89 Other specified places as the place of occurrence of the external cause; I10 Essential (primary) hypertension; Z79.899 Other long term (current) drug therapy

== ENCOUNTER → 2021-09-03 | Outpatient (CLI) | payer OTHER ==
[~2021-09-03] MED LIST changes: +PRED10TA2 PO
[2021-09-03 15:37] LABS: BASO # 0.1 10^3/uL (0.0-0.2); BASO % 0.7 % (0.0-1.0); EOS # 0.2 10^3/uL (0.0-0.5); EOS % 1.3 % (0.0-3.0); HEMATOCRIT 44.4 % (36.0-47.0); HEMOGLOBIN 15.1 g/dl (12.0-15.5); LYMPH # 3.7 10^3/uL (1.5-5.0); LYMPH % 31.9 % (24.0-44.0); MEAN CORPUSCULAR HEMOGLOBIN 31.3 pg (27.0-33.0); MEAN CORPUSCULAR VOLUME 92.1 fl (80.0-96.0); MONO # 0.7 10^3/uL (0.0-0.8); MONO % 5.8 % (2.0-8.0); NEUTROPHILS # 6.9 10^3/uL (1.5-8.5); PLATELET COUNT, AUTOMATED 324 10^3/uL (150-450); RED BLOOD COUNT 4.82 10^6/uL (4.00-5.40); WHITE BLOOD COUNT 11.5 10^3/uL (4.0-10.0)
[2021-09-03 16:11] LABS: ALBUMIN 4.5 GM/DL (3.2-5.2); ALT/SGPT 30 U/L (12-78); BILIRUBIN,TOTAL 0.4 MG/DL (0.2-1.0); BLOOD UREA NITROGEN 16 MG/DL (7-18); CARBON DIOXIDE LEVEL 30 MEQ/L (21-32); CHLORIDE LEVEL 104 MEQ/L (98-107); FREE T4 0.98 NG/DL (0.76-1.46); GLOMERULAR FILTRATION RATE > 60.0 (>51); GLUCOSE, FASTING 106 MG/DL (70-100); POTASSIUM SERUM 3.3 MEQ/L (3.5-5.1); SODIUM LEVEL 140 MEQ/L (136-145); TOTAL PROTEIN 7.6 GM/DL (6.4-8.2)
[2021-09-03 16:15] LABS: ERYTHROCYTE SEDIMENTATION RATE 8 mm/hr (0-30)
[2021-09-03 16:52] LABS: HIV 1&2 SCREEN CENTAUR NEGATIVE (NEGATIVE)
== END ==
LOC: M PLALAB 12:16
PROVIDERS: ATTEND Physician Assistant
DX: M25.551 Pain in right hip (principal); R22.2 Localized swelling, mass and lump, trunk; R53.82 Chronic fatigue, unspecified

== ENCOUNTER → 2021-09-20 | Outpatient (CLI) | payer OTHER | LOC: M RAD 15:33 | PROVIDERS: ATTEND Physician Assistant | DX: R22.2 Localized swelling, mass and lump, trunk (principal) ==

== ENCOUNTER → 2021-10-18 | Outpatient (CLI) | payer OTHER | LOC: M PLAIMG 09:07 → M PLALAB 09:07 | PROVIDERS: ATTEND Physician Assistant | DX: M54.42 Lumbago with sciatica, left side (principal) ==

== ENCOUNTER → 2021-11-08 | Outpatient (CLI) | payer OTHER ==
[2021-11-08 17:31] LABS: ALBUMIN 3.6 GM/DL (3.2-5.2); BLOOD UREA NITROGEN 19 MG/DL (7-18); CALCIUM LEVEL 9.2 MG/DL (8.5-10.1); CARBON DIOXIDE LEVEL 26 MEQ/L (21-32); CHLORIDE LEVEL 114 MEQ/L (98-107); CREATININE FOR GFR 0.72 MG/DL (0.55-1.30); GLOMERULAR FILTRATION RATE > 60.0 (>51); GLUCOSE, FASTING 81 MG/DL (70-100); PHOSPHORUS LEVEL 2.9 MG/DL (2.5-4.9); POTASSIUM SERUM 4.6 MEQ/L (3.5-5.1); SODIUM LEVEL 143 MEQ/L (136-145)
== END ==
LOC: M LAB 15:11
PROVIDERS: ATTEND Physician Assistant
DX: R22.2 Localized swelling, mass and lump, trunk (principal)

== ENCOUNTER → 2021-11-12 | Outpatient (CLI) | payer OTHER ==
[~2021-11-12] MED LIST changes: +PROHANCE 279.3MG/ML 15ML VIAL As Ordered ONE
== END ==
LOC: M PLAIMG 11-02 13:12 → M RAD 08:01
PROVIDERS: ATTEND Physician Assistant
DX: R22.2 Localized swelling, mass and lump, trunk (principal)
CPT/HCPCS: 71552; A9576

== ENCOUNTER → 2021-11-22 | Outpatient (REF) | payer OTHER ==
[~2021-11-22] MED LIST changes: +POTA-150 PO; -POTA10TA17 PO; -PROHANCE 279.3MG/ML 15ML VIAL As Ordered ONE
[2021-11-22 15:34] LABS: MAGNESIUM LEVEL 1.8 MG/DL (1.8-2.4); PERCENT SATURATION 32.7 % (13.2-45.0)
[2021-11-22 15:50] LABS: FOLATE 4.2 NG/ML; TOTAL 25(OH) VITAMIN D 30.5 NG/ML (30.0-100.0)
== END ==
LOC: M SFHCADAM 08:41
PROVIDERS: ATTEND Physician Assistant
DX: K12.1 Other forms of stomatitis (principal)

== ENCOUNTER 2021-12-25 14:21 | Emergency (ER) | payer OTHER ==
[~2021-12-25] VITALS: Ht 170.2 cm; Wt 90.8 kg
[2021-12-25] MEDS ORDERED: ETOMIDATE INJ 20MG/10ML VIAL ONE (14:22)
[2021-12-25] MEDS ORDERED: SUCCINYLCHOLINE 100 MG/5 ML SYRINGE (J0330) ONE (14:22)
[2021-12-25] MEDS ORDERED: ASPIRIN 300 MG SUPP PR STA (14:39)
[2021-12-25] MEDS ORDERED: HEPARIN DRIP 25,000 UNITS in IV 1 EA IV SCH (14:40)
[2021-12-25] MEDS ORDERED: HEPARIN SOD (PORCINE) 5000UNITS/ML 1ML VIAL/SYRINGE IV ONE (14:40)
[2021-12-25] MEDS ORDERED: HEPARIN SOD (PORCINE) 5000UNITS/ML 1ML VIAL/SYRINGE As Ordered ONE (14:40)
[2021-12-25] MEDS ORDERED: HEPARIN 25,000 UNITS/250 ML D5W BAG (100 UNITS/ML) (J1644 PER 1000UNITS) As Ordered ONE (14:41)
[2021-12-25] MEDS ORDERED: TENECTEPLASE 50 MG KIT (TNKase) (J3101 PER 1MG) As Ordered ONE (14:42)
[2021-12-25] MEDS ORDERED: MIDAZOLAM INJ 2MG/2ML VIAL (J2250 PER 1MG) As Ordered ONE (14:42)
[2021-12-25] MEDS ORDERED: CLOPIDOGREL 300 MG TAB (PLAVIX) NG STA (14:42)
[2021-12-25] MEDS ORDERED: MIDAZOLAM INJ 2MG/2ML VIAL (J2250 PER 1MG) IV STA (14:44)
[2021-12-25] MEDS ORDERED: TENECTEPLASE 50 MG KIT (TNKase) (J3101 PER 1MG) IV ONE (14:45)
[2021-12-25] MEDS ORDERED: MIDAZOLAM HCL 100 MG in IV 1 EA IV SCH (14:45)
[2021-12-25] MEDS ORDERED: MIDAZOLAM DRIP LOCK BOX KEY 1 EACH EA XX PRN (14:45)
[2021-12-25 14:51] LABS: HEMATOCRIT 42.3 % (36.0-47.0); HEMOGLOBIN 13.4 g/dl (12.0-15.5); MEAN CORPUSCULAR HEMOGLOBIN 30.5 pg (27.0-33.0); MEAN CORPUSCULAR HGB CONC 31.7 g/dl (32.0-36.5); MEAN CORPUSCULAR VOLUME 96.4 fl (80.0-96.0); PLATELET COUNT, AUTOMATED 300 10^3/uL (150-450); RED BLOOD COUNT 4.39 10^6/uL (4.00-5.40); WHITE BLOOD COUNT 16.6 10^3/uL (4.0-10.0)
[2021-12-25 15:02] LABS: INR 1.07; PROTHROMBIN TIME 14.3 SECONDS (12.7-14.5)
[2021-12-25 15:03] LABS: PARTIAL THROMBOPLASTIN TIME 27.7 SECONDS (25.9-37.0)
[2021-12-25 15:15] VITALS: BP 87/59
[2021-12-25] MEDS ORDERED: LIDOCAINE 2% 5ML JELLY UROJET TOP ONE (15:25)
[2021-12-25 15:32] LABS: ATYPICAL LYMPH 3 % (0-5); EOSINOPHILS 1 % (0-3); LYMPHOCYTES 48 % (16-44); MONOCYTES 5 % (0-5); MYELOCYTES 2 % (0-0); NEUTROPHILS 37 % (28-66); PLATELET ESTIMATE NORMAL (NORMAL)
[2021-12-25 15:33] LABS: SMUDGE CELLS 1+
[2021-12-25 15:34] LABS: CALCIUM LEVEL 8.9 MG/DL (8.5-10.1); CREATININE FOR GFR 1.43 MG/DL (0.55-1.30); GLOMERULAR FILTRATION RATE 40.3 (>51); POTASSIUM SERUM 4.5 MEQ/L (3.5-5.1)
[2021-12-25 15:35] LABS: CK-MB VALUE MASS 2.3 NG/ML (<3.6); MB/CK RELATIVE INDEX 1.87 (< OR =4)
[2021-12-25 15:41] LABS: RSV AMPLIFICATION NEGATIVE (NEGATIVE)
== END 2021-12-25 15:33 | disposition short-term general hospital (02) ==
LOC: M ED 14:21
DX: I21.3 ST elevation (STEMI) myocardial infarction of unspecified site (principal); I10 Essential (primary) hypertension; E78.5 Hyperlipidemia, unspecified; F32.A Depression, unspecified; F41.9 Anxiety disorder, unspecified; Z86.73 Personal history of transient ischemic attack (TIA), and cerebral infarction without residual deficits; Z79.899 Other long term (current) drug therapy; Z87.891 Personal history of nicotine dependence
CPT/HCPCS: 31500; 36415; 36600; 71045; 80048; 82550; 82553; 82803; 85025; 85610; 85730; 87631; 93005; 93041; 94760; 96365; 96368; 96375; 99291; J0330; J1644; J2250; J3101

== ENCOUNTER → 2022-01-24 | Outpatient (REF) | payer OTHER | LOC: M SFHCADAM 12:32 | PROVIDERS: ATTEND Physician Assistant | DX: J01.80 Other acute sinusitis (principal) ==

== ENCOUNTER → 2022-02-13 | Outpatient (REF) | payer OTHER ==
[2022-02-13 13:25] LABS: BASO # 0.1 10^3/uL (0.0-0.2); BASO % 0.9 % (0.0-1.0); EOS # 0.2 10^3/uL (0.0-0.5); EOS % 2.6 % (0.0-3.0); HEMATOCRIT 40.4 % (36.0-47.0); HEMOGLOBIN 13.4 g/dl (12.0-15.5); LYMPH # 3.2 10^3/uL (1.5-5.0); LYMPH % 40.9 % (24.0-44.0); MEAN CORPUSCULAR HEMOGLOBIN 29.3 pg (27.0-33.0); MEAN CORPUSCULAR HGB CONC 33.2 g/dl (32.0-36.5); MEAN CORPUSCULAR VOLUME 88.2 fl (80.0-96.0); MONO # 0.5 10^3/uL (0.0-0.8); MONO % 6.2 % (2.0-8.0); NEUTROPHILS # 3.8 10^3/uL (1.5-8.5); PLATELET COUNT, AUTOMATED 307 10^3/uL (150-450); RED BLOOD COUNT 4.58 10^6/uL (4.00-5.40); WHITE BLOOD COUNT 7.7 10^3/uL (4.0-10.0)
[2022-02-13 16:21] LABS: CALCIUM LEVEL 9.1 MG/DL (8.5-10.1); CHOLESTEROL RISK RATIO 3.347 (<5); CREATININE FOR GFR 1.04 MG/DL (0.55-1.30); GLOMERULAR FILTRATION RATE 58.1 (>51); POTASSIUM SERUM 4.1 MEQ/L (3.5-5.1)
== END ==
LOC: M LAB REF 11:45
PROVIDERS: ATTEND Internal Medicine Interventional Cardiology
DX: I21.21 ST elevation (STEMI) myocardial infarction involving left circumflex coronary artery (principal); I50.20 Unspecified systolic (congestive) heart failure; I46.9 Cardiac arrest, cause unspecified; I25.10 Atherosclerotic heart disease of native coronary artery without angina pectoris

== ENCOUNTER → 2022-02-28 | Outpatient (CLI) | payer OTHER | LOC: M ADAMS 08:44 | PROVIDERS: ATTEND Physician Assistant | DX: M54.2 Cervicalgia (principal); S22.43XD Multiple fractures of ribs, bilateral, subsequent encounter for fracture with routine healing ==

== ENCOUNTER → 2022-03-22 | Outpatient (CLI) | payer OTHER | LOC: M PLARAD 09:39 | PROVIDERS: ATTEND Physician Assistant | DX: H53.9 Unspecified visual disturbance (principal) ==

== ENCOUNTER → 2022-03-29 | Outpatient (REF) | payer OTHER ==
[2022-03-29 13:32] LABS: BLOOD UREA NITROGEN 27 MG/DL (9-23); CALCIUM LEVEL 9.1 MG/DL (8.5-10.1); CARBON DIOXIDE LEVEL 27 MMOL/L (20-31); CHLORIDE LEVEL 102 MMOL/L (98-107); GLOMERULAR FILTRATION RATE > 60.0 (>51); GLUCOSE, FASTING 125 MG/DL (60-100); POTASSIUM SERUM 3.5 MMOL/L (3.5-5.1); SODIUM LEVEL 138 MMOL/L (136-145)
== END ==
LOC: M LABDRWAD 12:22
PROVIDERS: ATTEND Internal Medicine Interventional Cardiology
DX: I50.22 Chronic systolic (congestive) heart failure (principal); I25.2 Old myocardial infarction

== ENCOUNTER 2022-05-31 13:34 | Emergency (ER) | payer OTHER ==
[~2022-05-31] VITALS: Ht 160 cm; Wt 77.3 kg
[2022-05-31] MEDS ORDERED: ONDANSETRON 4MG 2ML VIAL IV ONE (14:55)
[2022-05-31] MEDS: MORPHINE 4 MG/ML 1ML VIAL IV PRN ×2 (15:20→16:09)
[2022-05-31 15:24] LABS: BASO # 0.1 10^3/uL (0.0-0.2); BASO % 0.9 % (0.0-1.0); EOS # 0.3 10^3/uL (0.0-0.5); EOS % 2.2 % (0.0-3.0); HEMATOCRIT 43.5 % (36.0-47.0); HEMOGLOBIN 14.8 g/dl (12.0-15.5); LYMPH # 4.3 10^3/uL (1.5-5.0); LYMPH % 37.6 % (24.0-44.0); MEAN CORPUSCULAR HEMOGLOBIN 30.1 pg (27.0-33.0); MEAN CORPUSCULAR VOLUME 88.4 fl (80.0-96.0); MONO # 0.7 10^3/uL (0.0-0.8); NEUTROPHILS % 52.9 % (36.0-66.0); PLATELET COUNT, AUTOMATED 302 10^3/uL (150-450); RED BLOOD COUNT 4.92 10^6/uL (4.00-5.40); WHITE BLOOD COUNT 11.3 10^3/uL (4.0-10.0)
[2022-05-31 15:51] LABS: CK-MB VALUE MASS < 1.0 NG/ML (<3.6)
[2022-05-31 15:52] LABS: LIPASE 30 U/L (12-53)
[2022-05-31 15:54] LABS: ALBUMIN 4.3 G/DL (3.2-5.2); ALKALINE PHOSPHATASE 129 U/L (46-116); ALT/SGPT 24 U/L (7.0-40); AST/SGOT < 8 U/L (<34); BILIRUBIN,DIRECT 0.2 MG/DL (<0.4); BILIRUBIN,TOTAL 0.4 MG/DL (0.3-1.2); CPK CREATINE PHOSPHOKINASE 136 U/L (34-145); MB/CK RELATIVE INDEX 0.73 (< OR =4); TOTAL PROTEIN 7.2 G/DL (5.7-8.2)
[2022-05-31 15:55] LABS: THYROID STIMULATING HORMONE 1.846 uIU/ML (0.55-4.78)
[2022-05-31 15:56] LABS: FREE T4 1.17 NG/DL (0.89-1.76); RSV AMPLIFICATION NEGATIVE (NEGATIVE)
[2022-05-31 16:05] LABS: INR 0.93; PROTHROMBIN TIME 12.7 SECONDS (12.5-14.5)
[2022-05-31 16:43] LABS: CK-MB VALUE MASS 1.7 NG/ML (<3.6)
[2022-05-31 16:48] LABS: MB/CK RELATIVE INDEX 1.26 (< OR =4)
[2022-05-31] MEDS ORDERED: PROMETHAZINE 25MG/ML 1ML VIAL IV ONE (17:20)
[2022-05-31] MEDS ORDERED: ISOVUE-370 76% 100ML VIAL As Ordered ONE (17:42)
[2022-05-31 18:40] VITALS: BP 100/61
[2022-05-31 19:11] LABS: CK-MB VALUE MASS 1.5 NG/ML (<3.6)
[2022-05-31 19:12] LABS: MB/CK RELATIVE INDEX 1.19 (< OR =4)
[2022-05-31] MEDS ORDERED: PROM12.56 PO (19:20)
== END 2022-05-31 20:19 | disposition home or self-care (01) ==
LOC: M ED 13:34
DX: R10.13 Epigastric pain (principal); R11.2 Nausea with vomiting, unspecified; K76.89 Other specified diseases of liver; R91.8 Other nonspecific abnormal finding of lung field; R06.02 Shortness of breath; I25.10 Atherosclerotic heart disease of native coronary artery without angina pectoris; I11.0 Hypertensive heart disease with heart failure; I50.9 Heart failure, unspecified; E78.5 Hyperlipidemia, unspecified; J44.9 Chronic obstructive pulmonary disease, unspecified; Z95.5 Presence of coronary angioplasty implant and graft; Z90.710 Acquired absence of both cervix and uterus; Z87.891 Personal history of nicotine dependence; Z79.899 Other long term (current) drug therapy
CPT/HCPCS: 71045; 71275; 74177; 80047; 80076; 82550; 82553; 83690; 83880; 84439; 84443; 85025; 85610; 85730; 87631; 93005; 93041; 94760; 96374; 96375; 96376; 99285; J2270; J2405; J2550

== ENCOUNTER → 2022-06-07 | Outpatient (REF) | payer OTHER ==
[~2022-06-07] MED LIST changes: +PROM12.56 PO
[2022-06-07 13:14] LABS: HEMOGLOBIN A1c 6.6 % (4.0-6.0)
== END ==
LOC: M SFHCADAM 09:11
PROVIDERS: ATTEND Physician Assistant
DX: E55.9 Vitamin D deficiency, unspecified (principal); R53.82 Chronic fatigue, unspecified

== ENCOUNTER → 2022-06-14 | Outpatient (CLI) | payer OTHER ==
[2022-06-14 18:03] LABS: RHEUMATOID FACTOR QUANT < 3.5 IU/ML (<14)
[2022-06-14 18:06] LABS: FOLATE 5.1 NG/ML (>5.4); THYROID STIMULATING HORMONE 2.842 uIU/ML (0.55-4.78); VITAMIN B12 LEVEL 506 PG/ML (211-911)
== END ==
LOC: M LABDRWAD 11:47
PROVIDERS: ATTEND Psychiatry & Neurology Neurology
DX: R51.9 Headache, unspecified (principal); R41.3 Other amnesia

== ENCOUNTER → 2022-06-24 | Outpatient (CLI) | payer OTHER ==
[~2022-06-24] MED LIST changes: +TOPI-254 PO; -TOPI50TA9 PO
== END ==
LOC: M PLAIMG 07:51
PROVIDERS: ATTEND Physician Assistant
DX: M47.27 Other spondylosis with radiculopathy, lumbosacral region (principal)

== ENCOUNTER → 2022-07-01 | Outpatient (CLI) | payer OTHER | LOC: M CARPUL 08:30 | PROVIDERS: ATTEND Physician Assistant | DX: R06.02 Shortness of breath (principal) ==

== ENCOUNTER → 2022-07-18 | Outpatient (REF) | payer OTHER ==
[2022-07-18 13:26] LABS: BASO # 0.1 10^3/uL (0.0-0.2); BASO % 0.8 % (0.0-1.0); EOS # 0.4 10^3/uL (0.0-0.5); EOS % 3.6 % (0.0-3.0); HEMATOCRIT 42.3 % (36.0-47.0); HEMOGLOBIN 14.1 g/dl (12.0-15.5); LYMPH # 3.2 10^3/uL (1.5-5.0); LYMPH % 33.3 % (24.0-44.0); MEAN CORPUSCULAR HEMOGLOBIN 30.7 pg (27.0-33.0); MEAN CORPUSCULAR HGB CONC 33.3 g/dl (32.0-36.5); MEAN CORPUSCULAR VOLUME 92.2 fl (80.0-96.0); MONO # 0.7 10^3/uL (0.0-0.8); MONO % 7.2 % (2.0-8.0); NEUTROPHILS # 5.3 10^3/uL (1.5-8.5); NEUTROPHILS % 54.7 % (36.0-66.0); PLATELET COUNT, AUTOMATED 288 10^3/uL (150-450); RED BLOOD COUNT 4.59 10^6/uL (4.00-5.40); WHITE BLOOD COUNT 9.6 10^3/uL (4.0-10.0)
== END ==
LOC: M SFHCADAM 08:53
PROVIDERS: ATTEND Physician Assistant
DX: K29.01 Acute gastritis with bleeding (principal)

== ENCOUNTER → 2022-07-31 | Outpatient (REF) | payer OTHER ==
[~2022-07-31] MED LIST changes: +SENN-186 PO; -SENN-80 PO
[2022-07-31 13:18] LABS: BASO # 0.1 10^3/uL (0.0-0.2); BASO % 0.7 % (0.0-1.0); EOS # 0.2 10^3/uL (0.0-0.5); EOS % 2.5 % (0.0-3.0); HEMATOCRIT 41.9 % (36.0-47.0); LYMPH # 2.4 10^3/uL (1.5-5.0); LYMPH % 31.6 % (24.0-44.0); MEAN CORPUSCULAR HEMOGLOBIN 30.7 pg (27.0-33.0); MEAN CORPUSCULAR HGB CONC 33.4 g/dl (32.0-36.5); MEAN CORPUSCULAR VOLUME 91.9 fl (80.0-96.0); MONO # 0.5 10^3/uL (0.0-0.8); NEUTROPHILS # 4.4 10^3/uL (1.5-8.5); NEUTROPHILS % 57.8 % (36.0-66.0); PLATELET COUNT, AUTOMATED 309 10^3/uL (150-450); RED BLOOD COUNT 4.56 10^6/uL (4.00-5.40); WHITE BLOOD COUNT 7.7 10^3/uL (4.0-10.0)
[2022-07-31 13:35] LABS: HEMOGLOBIN A1c 6.1 % (4.0-6.0)
[2022-07-31 13:50] LABS: FREE T4 1.01 NG/DL (0.89-1.76); THYROID STIMULATING HORMONE 1.851 uIU/ML (0.55-4.78)
[2022-07-31 13:51] LABS: TOTAL 25(OH) VITAMIN D 28.1 NG/ML (20.0-100.0)
[2022-07-31 13:52] LABS: ALBUMIN 4.3 G/DL (3.2-5.2); BILIRUBIN,TOTAL 0.2 MG/DL (0.3-1.2); CALCIUM LEVEL 9.5 MG/DL (8.5-10.1); CHOLESTEROL RISK RATIO 2.81 (<5); CREATININE FOR GFR 1.16 MG/DL (0.55-1.30); GLOMERULAR FILTRATION RATE 51.3 (>51); HDL CHOLESTEROL 44.8 MG/DL (>40); NON-HDL-C 81.2 MG/DL
== END ==
LOC: M SFHCADAM 08:03
PROVIDERS: ATTEND Physician Assistant
DX: I50.42 Chronic combined systolic (congestive) and diastolic (congestive) heart failure (principal); E55.9 Vitamin D deficiency, unspecified; I11.0 Hypertensive heart disease with heart failure; E11.9 Type 2 diabetes mellitus without complications; I25.10 Atherosclerotic heart disease of native coronary artery without angina pectoris

== ENCOUNTER → 2022-09-18 | Outpatient (REF) | payer OTHER | LOC: M SFHCADAM 08:28 | PROVIDERS: ATTEND Physician Assistant | DX: R19.5 Other fecal abnormalities (principal) ==

== ENCOUNTER → 2022-09-27 | Outpatient (REF) | payer OTHER ==
[2022-09-27 15:17] LABS: BASO # 0.1 10^3/uL (0.0-0.2); BASO % 0.8 % (0.0-1.0); EOS # 0.1 10^3/uL (0.0-0.5); EOS % 1.8 % (0.0-3.0); HEMATOCRIT 45.7 % (36.0-47.0); HEMOGLOBIN 15.6 g/dl (12.0-15.5); LYMPH # 3.1 10^3/uL (1.5-5.0); LYMPH % 40.6 % (24.0-44.0); MEAN CORPUSCULAR HEMOGLOBIN 30.8 pg (27.0-33.0); MEAN CORPUSCULAR HGB CONC 34.1 g/dl (32.0-36.5); MEAN CORPUSCULAR VOLUME 90.1 fl (80.0-96.0); MONO # 0.6 10^3/uL (0.0-0.8); MONO % 7.7 % (2.0-8.0); NEUTROPHILS # 3.7 10^3/uL (1.5-8.5); NEUTROPHILS % 48.7 % (36.0-66.0); PLATELET COUNT, AUTOMATED 264 10^3/uL (150-450); RED BLOOD COUNT 5.07 10^6/uL (4.00-5.40); WHITE BLOOD COUNT 7.6 10^3/uL (4.0-10.0)
[2022-09-27 15:52] LABS: CALCIUM LEVEL 9.5 MG/DL (8.5-10.1); CREATININE FOR GFR 1.22 MG/DL (0.55-1.30); GLOMERULAR FILTRATION RATE 48.4 (>51); PERCENT SATURATION 28.8 % (13.2-45.0); POTASSIUM SERUM 3.6 MMOL/L (3.5-5.1)
[2022-09-27 15:54] LABS: FREE T4 1.41 NG/DL (0.89-1.76)
[2022-09-27 15:55] LABS: FERRITIN 33.7 NG/ML (7.3-270.7); THYROID STIMULATING HORMONE 0.787 uIU/ML (0.55-4.78)
== END ==
LOC: M SFHCADAM 10:42
PROVIDERS: ATTEND Physician Assistant
DX: R61 Generalized hyperhidrosis (principal); R19.5 Other fecal abnormalities; I50.42 Chronic combined systolic (congestive) and diastolic (congestive) heart failure; R19.7 Diarrhea, unspecified

== ENCOUNTER → 2022-10-03 | Outpatient (REF) | payer OTHER | LOC: M SFHCADAM 08:21 | PROVIDERS: ATTEND Physician Assistant | DX: N17.9 Acute kidney failure, unspecified (principal); Z53.9 Procedure and treatment not carried out, unspecified reason ==

== ENCOUNTER → 2022-10-08 | Outpatient (REF) | payer OTHER ==
[2022-10-08 14:57] LABS: BLOOD UREA NITROGEN 16 MG/DL (9-23); CALCIUM LEVEL 9.1 MG/DL (8.5-10.1); CARBON DIOXIDE LEVEL 26 MMOL/L (20-31); CHLORIDE LEVEL 107 MMOL/L (98-107); CREATININE FOR GFR 0.96 MG/DL (0.55-1.30); GLOMERULAR FILTRATION RATE > 60.0 (>51); GLUCOSE, FASTING 106 MG/DL (60-100); SODIUM LEVEL 140 MMOL/L (136-145)
== END ==
LOC: M SFHCADAM 12:42
PROVIDERS: ATTEND Physician Assistant
DX: N17.9 Acute kidney failure, unspecified (principal)

== ENCOUNTER → 2022-11-20 | Outpatient (REF) | payer OTHER | LOC: M SFHCADAM 12:30 | PROVIDERS: ATTEND Physician Assistant | DX: R33.9 Retention of urine, unspecified (principal) ==

== ENCOUNTER → 2022-11-29 | Outpatient (REF) | payer OTHER ==
[2022-11-29 16:09] LABS: APPEARANCE, URINE CLOUDY (CLEAR); BACTERIA, URINE AUTO 3+ (NEGATIVE); BILIRUBIN, URINE AUTO NEGATIVE (NEGATIVE); BLOOD, URINE BLOOD NEGATIVE (NEGATIVE); COLOR, URINE AMBER (YELLOW); GLUCOSE, URINE (UA) AUTO 3+ mg/dL (NEGATIVE); KETONE, URINE AUTO TRACE mg/dL (NEGATIVE); LEUKOCYTE ESTERASE, URINE AUTO 2+ (NEGATIVE); MUCUS, URINE SMALL (NEGATIVE); NITRITE, URINE AUTO NEGATIVE (NEGATIVE); PROTEIN, URINE AUTO 1+ mg/dL (NEGATIVE); RBC, URINE AUTO 4 /HPF (0-3); SPECIFIC GRAVITY URINE AUTO 1.023 (1.002-1.035); SQUAMOUS EPITHELIAL CELL UR AU 2 /HPF (0-6); TRANSITIONAL EPITHELIAL AUTO <1 /HPF; UROBILINOGEN, URINE AUTO 0.2 mg/dL (0.0-2.0); WBC, URINE AUTO 136 /HPF (0-3)
== END ==
LOC: M SFHCADAM 15:20
PROVIDERS: ATTEND Physician Assistant
DX: R30.0 Dysuria (principal)

== ENCOUNTER → 2022-12-06 | Outpatient (CLI) | payer OTHER | LOC: M RAD 12:57 | PROVIDERS: ATTEND Physician Assistant | DX: R33.9 Retention of urine, unspecified (principal) ==

== ENCOUNTER → 2023-01-24 | Outpatient (CLI) | payer OTHER | LOC: M PLAIMG 10:41 | PROVIDERS: ATTEND Physician Assistant | DX: M43.06 Spondylolysis, lumbar region (principal) ==

== ENCOUNTER → 2023-02-04 | Outpatient (CLI) | payer OTHER | LOC: M ADAMS 10:42 | PROVIDERS: ATTEND Physician Assistant | DX: J20.9 Acute bronchitis, unspecified (principal); R06.2 Wheezing ==

== ENCOUNTER 2023-02-27 16:37 | Emergency (ER) | payer OTHER ==
[~2023-02-27] VITALS: Ht 160 cm; Wt 73.6 kg
[2023-02-27 16:38] VITALS: BP 136/78; TEMP 98.3; O2SAT 97
== END 2023-02-27 21:52 | disposition left against medical advice (07) ==
LOC: M ED 16:37
DX: Z53.21 Procedure and treatment not carried out due to patient leaving prior to being seen by health care provider (principal)

== ENCOUNTER → 2023-04-30 | Outpatient (REF) | payer OTHER ==
[~2023-04-30] MED LIST changes: +TOPI-21 PO; -TOPI-254 PO
== END ==
LOC: M SFHCADAM 16:47
PROVIDERS: ATTEND Physician Assistant
DX: J06.9 Acute upper respiratory infection, unspecified (principal)

== ENCOUNTER → 2023-05-02 | Outpatient (REF) | payer OTHER ==
[2023-05-02 13:17] LABS: BASO # 0.1 10^3/uL (0.0-0.2); EOS # 0.4 10^3/uL (0.0-0.5); EOS % 4.9 % (0.0-3.0); HEMATOCRIT 44.8 % (36.0-47.0); HEMOGLOBIN 14.5 g/dl (12.0-15.5); LYMPH # 2.6 10^3/uL (1.5-5.0); LYMPH % 31.3 % (24.0-44.0); MEAN CORPUSCULAR HEMOGLOBIN 29.8 pg (27.0-33.0); MEAN CORPUSCULAR HGB CONC 32.4 g/dl (32.0-36.5); MONO # 0.6 10^3/uL (0.0-0.8); MONO % 6.9 % (2.0-8.0); NEUTROPHILS # 4.5 10^3/uL (1.5-8.5); NEUTROPHILS % 55.5 % (36.0-66.0); PLATELET COUNT, AUTOMATED 302 10^3/uL (150-450); RED BLOOD COUNT 4.87 10^6/uL (4.00-5.40); WHITE BLOOD COUNT 8.2 10^3/uL (4.0-10.0)
[2023-05-02 13:19] LABS: BLOOD UREA NITROGEN 22 MG/DL (9-23); CALCIUM LEVEL 9.4 MG/DL (8.5-10.1); CARBON DIOXIDE LEVEL 28 MMOL/L (20-31); CHLORIDE LEVEL 104 MMOL/L (98-107); CREATININE FOR GFR 0.87 MG/DL (0.55-1.30); GLOMERULAR FILTRATION RATE > 60.0 (>51); GLUCOSE, FASTING 124 MG/DL (60-100); SODIUM LEVEL 136 MMOL/L (136-145)
== END ==
LOC: M SFHCADAM 08:26
PROVIDERS: ATTEND Physician Assistant
DX: I11.0 Hypertensive heart disease with heart failure (principal)

== ENCOUNTER → 2023-05-02 | Outpatient (CLI) | payer OTHER | LOC: M ADAMS 08:39 | PROVIDERS: ATTEND Physician Assistant | DX: R06.01 Orthopnea (principal); I11.0 Hypertensive heart disease with heart failure; J98.11 Atelectasis ==

== ENCOUNTER → 2023-05-09 | Outpatient (CLI) | payer OTHER ==
[~2023-05-09] MED LIST changes: +ISOVUE-370 76% 100ML VIAL ONE
[2023-05-09 12:33] LABS: BLOOD UREA NITROGEN 17 MG/DL (9-23); CALCIUM LEVEL 9.2 MG/DL (8.5-10.1); CARBON DIOXIDE LEVEL 29 MMOL/L (20-31); CHLORIDE LEVEL 104 MMOL/L (98-107); CREATININE FOR GFR 0.94 MG/DL (0.55-1.30); GLOMERULAR FILTRATION RATE > 60.0 (>51); GLUCOSE, FASTING 107 MG/DL (60-100); POTASSIUM SERUM 3.7 MMOL/L (3.5-5.1); SODIUM LEVEL 141 MMOL/L (136-145)
== END ==
LOC: M PLAIMG 09:53
PROVIDERS: ATTEND Physician Assistant
DX: R06.00 Dyspnea, unspecified (principal); R91.1 Solitary pulmonary nodule; K76.89 Other specified diseases of liver
CPT/HCPCS: 36415; 71275; 80048; 83880; Q9967

== ENCOUNTER → 2023-06-04 | Outpatient (CLI) | payer OTHER ==
[~2023-06-04] MED LIST changes: -ISOVUE-370 76% 100ML VIAL ONE
== END ==
LOC: M CARPUL 07:54
PROVIDERS: ATTEND Physician Assistant
DX: R06.00 Dyspnea, unspecified (principal)

== ENCOUNTER → 2023-07-11 | Outpatient (REF) | payer OTHER ==
[~2023-07-11] MED LIST changes: -PSEU30TA86 PO; +PSEU30TA87 PO
[2023-07-11 14:03] LABS: BASO # 0.1 10^3/uL (0.0-0.2); BASO % 1.1 % (0.0-1.0); EOS # 0.3 10^3/uL (0.0-0.5); EOS % 3.2 % (0.0-3.0); HEMATOCRIT 45.7 % (36.0-47.0); HEMOGLOBIN 14.8 g/dl (12.0-15.5); LYMPH # 3.5 10^3/uL (1.5-5.0); LYMPH % 42.4 % (24.0-44.0); MEAN CORPUSCULAR HEMOGLOBIN 29.5 pg (27.0-33.0); MEAN CORPUSCULAR HGB CONC 32.4 g/dl (32.0-36.5); MEAN CORPUSCULAR VOLUME 91.2 fl (80.0-96.0); MONO # 0.6 10^3/uL (0.0-0.8); MONO % 6.8 % (2.0-8.0); NEUTROPHILS # 3.8 10^3/uL (1.5-8.5); PLATELET COUNT, AUTOMATED 348 10^3/uL (150-450); RED BLOOD COUNT 5.01 10^6/uL (4.00-5.40); WHITE BLOOD COUNT 8.2 10^3/uL (4.0-10.0)
[2023-07-11 14:10] LABS: THYROID STIMULATING HORMONE 0.214 uIU/ML (0.55-4.78)
[2023-07-11 14:11] LABS: TOTAL 25(OH) VITAMIN D 23.9 NG/ML (20.0-100.0)
[2023-07-11 14:13] LABS: ALBUMIN 4.3 G/DL (3.2-5.2); ALKALINE PHOSPHATASE 99 U/L (46-116); ALT/SGPT 19 U/L (7.0-40); AST/SGOT 10 U/L (<34); BILIRUBIN,TOTAL 0.3 MG/DL (0.3-1.2); BLOOD UREA NITROGEN 21 MG/DL (9-23); CALCIUM LEVEL 9.6 MG/DL (8.5-10.1); CARBON DIOXIDE LEVEL 27 MMOL/L (20-31); CHLORIDE LEVEL 106 MMOL/L (98-107); CHOLESTEROL LEVEL 136 MG/DL (<200); CHOLESTEROL RISK RATIO 3.19 (<5); CREATININE FOR GFR 0.98 MG/DL (0.55-1.30); FREE T4 1.36 NG/DL (0.89-1.76); GLOMERULAR FILTRATION RATE > 60.0 (>51); GLUCOSE, FASTING 100 MG/DL (60-100); HDL CHOLESTEROL 42.6 MG/DL (>40); LDL CHOLESTEROL 68.8 MG/DL (<100); NON-HDL-C 93.4 MG/DL; POTASSIUM SERUM 4.7 MMOL/L (3.5-5.1); SODIUM LEVEL 137 MMOL/L (136-145); TRIGLYCERIDES LEVEL 123 MG/DL (<150)
[2023-07-11 14:18] LABS: HEMOGLOBIN A1c 6.4 % (4.0-6.0)
== END ==
LOC: M SFHCADAM 08:43
PROVIDERS: ATTEND Physician Assistant
DX: R79.89 Other specified abnormal findings of blood chemistry (principal); E11.9 Type 2 diabetes mellitus without complications; I25.10 Atherosclerotic heart disease of native coronary artery without angina pectoris; I50.42 Chronic combined systolic (congestive) and diastolic (congestive) heart failure

== ENCOUNTER → 2023-10-29 | Outpatient (REF) | payer OTHER ==
[~2023-10-29] MED LIST changes: +BUPR-597 PO; -BUPR300T92 PO
[2023-10-29 17:24] LABS: BASO # 0.1 10^3/uL (0.0-0.2); BASO % 0.8 % (0.0-1.0); EOS # 0.2 10^3/uL (0.0-0.5); HEMATOCRIT 47.8 % (36.0-47.0); HEMOGLOBIN 15.7 g/dl (12.0-15.5); LYMPH # 2.9 10^3/uL (1.5-5.0); LYMPH % 37.3 % (24.0-44.0); MEAN CORPUSCULAR HEMOGLOBIN 29.7 pg (27.0-33.0); MEAN CORPUSCULAR HGB CONC 32.8 g/dl (32.0-36.5); MEAN CORPUSCULAR VOLUME 90.5 fl (80.0-96.0); MONO # 0.5 10^3/uL (0.0-0.8); MONO % 6.5 % (2.0-8.0); NEUTROPHILS # 4.2 10^3/uL (1.5-8.5); NEUTROPHILS % 53.1 % (36.0-66.0); PLATELET COUNT, AUTOMATED 306 10^3/uL (150-450); RED BLOOD COUNT 5.28 10^6/uL (4.00-5.40); WHITE BLOOD COUNT 7.8 10^3/uL (4.0-10.0)
[2023-10-29 17:26] LABS: BLOOD UREA NITROGEN 17 MG/DL (9-23); CARBON DIOXIDE LEVEL 28 MMOL/L (20-31); CHLORIDE LEVEL 104 MMOL/L (98-107); CREATININE FOR GFR 0.95 MG/DL (0.55-1.30); GLOMERULAR FILTRATION RATE > 60.0 (>51); GLUCOSE, FASTING 81 MG/DL (60-100); POTASSIUM SERUM 3.7 MMOL/L (3.5-5.1); SODIUM LEVEL 139 MMOL/L (136-145)
[2023-10-29 17:27] LABS: FREE T4 1.31 NG/DL (0.89-1.76); THYROID STIMULATING HORMONE 3.527 uIU/ML (0.55-4.78)
[2023-10-29 17:46] LABS: CREATININE, URINE 15.4 MG/DL; MALB URINE SIEMENS < 3.0 MG/L; MAU/CREAT RATIO 19.4 MCG/MG (0.0-30.0)
[2023-10-29 20:15] LABS: HEMOGLOBIN A1c 5.8 % (4.0-6.0)
== END ==
LOC: M SFHCLERA 09:51
PROVIDERS: ATTEND Physician Assistant
DX: I25.10 Atherosclerotic heart disease of native coronary artery without angina pectoris (principal); E11.9 Type 2 diabetes mellitus without complications; I11.0 Hypertensive heart disease with heart failure; I50.42 Chronic combined systolic (congestive) and diastolic (congestive) heart failure

== ENCOUNTER 2023-11-24 10:41 | Inpatient (IN) | payer OTHER ==
[~2023-11-24] VITALS: Ht 160 cm; Wt 70.0 kg
[2023-11-24 11:29] LABS: BASO # 0.1 10^3/uL (0.0-0.2); EOS # 0.2 10^3/uL (0.0-0.5); EOS % 2.5 % (0.0-3.0); HEMATOCRIT 43.5 % (36.0-47.0); HEMOGLOBIN 14.9 g/dl (12.0-15.5); LYMPH # 3.6 10^3/uL (1.5-5.0); LYMPH % 41.5 % (24.0-44.0); MEAN CORPUSCULAR HEMOGLOBIN 30.5 pg (27.0-33.0); MEAN CORPUSCULAR HGB CONC 34.3 g/dl (32.0-36.5); MONO # 0.6 10^3/uL (0.0-0.8); MONO % 7.1 % (2.0-8.0); NEUTROPHILS # 4.2 10^3/uL (1.5-8.5); NEUTROPHILS % 47.7 % (36.0-66.0); PLATELET COUNT, AUTOMATED 317 10^3/uL (150-450); RED BLOOD COUNT 4.89 10^6/uL (4.00-5.40); WHITE BLOOD COUNT 8.7 10^3/uL (4.0-10.0)
[2023-11-24 11:48] LABS: INR 0.95; PARTIAL THROMBOPLASTIN TIME 25.9 SECONDS (24.8-34.2); PROTHROMBIN TIME 12.4 SECONDS (12.5-14.5)
[2023-11-24 11:49] LABS: CK-MB VALUE MASS < 1.0 NG/ML (<3.6)
[2023-11-24 11:51] LABS: BLOOD UREA NITROGEN 21 MG/DL (9-23); CALCIUM LEVEL 9.4 MG/DL (8.5-10.1); CARBON DIOXIDE LEVEL 28 MMOL/L (20-31); CHLORIDE LEVEL 102 MMOL/L (98-107); CREATININE FOR GFR 0.88 MG/DL (0.55-1.30); GLOMERULAR FILTRATION RATE > 60.0 (>51); GLUCOSE, FASTING 91 MG/DL (60-100); MAGNESIUM LEVEL 1.6 MG/DL (1.8-2.4); POTASSIUM SERUM 3.8 MMOL/L (3.5-5.1); SODIUM LEVEL 138 MMOL/L (136-145)
[2023-11-24 11:53] LABS: FREE T4 1.45 NG/DL (0.89-1.76); THYROID STIMULATING HORMONE 4.218 uIU/ML (0.55-4.78)
[2023-11-24 11:56] LABS: CPK CREATINE PHOSPHOKINASE 103 U/L (34-145); MB/CK RELATIVE INDEX 0.97 (< OR =4)
[2023-11-24] MEDS: ONDANSETRON 4MG 2ML VIAL IV ONE ×2 (15:00→22:33)
[2023-11-24] MEDS: MAG SULF 1GM/100ML (MAG RUN) 1 GM in IV 1 EA IV ONE (15:00)
[2023-11-24] MEDS ORDERED: PANT40TA29 PO (16:54)
[2023-11-24] MEDS ORDERED: ASPI81CH33 PO (16:54)
[2023-11-24] MEDS ORDERED: METF-839 PO (16:54)
[2023-11-24] MEDS ORDERED: TRAM50TA2 PO (16:54)
[2023-11-24] MEDS ORDERED: MIRA3350 PO (16:54)
[2023-11-24] MEDS ORDERED: ENTR1TAB PO (16:54)
[2023-11-24] MEDS ORDERED: FARX1TAB3 PO (16:54)
[2023-11-24] MEDS ORDERED: CARV3.12 PO (16:54)
[2023-11-24] MEDS ORDERED: NITR0.4S14 SL (16:54)
[2023-11-24] MEDS: NS 1,000 ML IV ONE (17:07)
[2023-11-24] MEDS ORDERED: SEMA0.257 SC (17:58)
[2023-11-24] MEDS ORDERED: POLY17PO18 PO (17:58)
[2023-11-24] MEDS ORDERED: SPIR-10 PO (18:01)
[2023-11-24] MEDS ORDERED: HOME MED LIST COMPLETE! XX SCH (18:05)
[2023-11-24] MEDS ORDERED: PROHANCE 279.3MG/ML 15ML VIAL As Ordered ONE (21:09)
[2023-11-24] MEDS ORDERED: PROHANCE 279.3MG/ML 5ML VIAL As Ordered ONE (22:09)
[2023-11-24] MEDS ORDERED: KETOROLAC 30 MG/ML 1ML VIAL As Ordered ONE (22:29)
[2023-11-24] MEDS: KETOROLAC 30 MG/ML 1ML VIAL IV ONE (22:33)
[2023-11-24] MEDS: NS 500 ML IV ONE (23:34)
[2023-11-24] MEDS ORDERED: GLUCOSE 4 GM CHEW PO PRN (23:45)
[2023-11-24] MEDS ORDERED: DEXTROSE 50% 50ML SYRINGE IV PRN (23:45)
[2023-11-24] MEDS ORDERED: GLUCAGON INJ 1MG VIAL SC PRN (23:45)
[2023-11-24] MEDS ORDERED: MOM 30ML SUSPENSION UDC PO PRN (23:45)
[2023-11-24] MEDS ORDERED: traMADol 50 MG TAB PO PRN (23:50)
[2023-11-25] VITALS (7 sets, daily range): BP systolic 86–123; BP diastolic 50–76; TEMP 97.8–98.3; O2SAT 95–99
[2023-11-25] MEDS: CARVedilol 3.125 MG TAB PO SCH (00:03)
[2023-11-25] MEDS: SENNA 8.6 MG TAB (SENOKOT) PO SCH (00:08)
[2023-11-25] MEDS: ENTRESTO 24-26MG TABLET (SACUBITRIL/VALSARTAN) PO SCH (00:08)
[2023-11-25] MEDS: AMITRIPTYLINE 25MG TABLET PO ONE (00:47)
[2023-11-25] MEDS: NS 1,000 ML IV ONE ×2 (00:48→02:37)
[2023-11-25] MEDS: ATORVASTATIN 20 MG TAB PO SCH (00:51)
[2023-11-25] MEDS: PANTOPRAZOLE 40MG TAB (PROTONIX) PO SCH (00:52)
[2023-11-25] MEDS: NS 1,000 ML IV SCH (04:23)
[2023-11-25] MEDS: INSULIN LISPRO (NovoLOG) PER UNIT SC SCH ×2 (07:30→20:08)
[2023-11-25] MEDS: ENOXAPARIN 40MG/0.4ML SYRINGE (J1650 PER 10MG) SC SCH (08:23)
[2023-11-25] MEDS: buPROPion **XL** TABLET 150MG (WELLBUTRIN XL) PO SCH (08:23)
[2023-11-25] MEDS: ASPIRIN 81MG CHEW TABLET PO SCH (08:23)
[2023-11-25] MEDS: SPIRONOLACTONE 25 MG TAB PO SCH (08:45)
[2023-11-25] MEDS: ONDANSETRON 4MG 2ML VIAL IV PRN (09:08)
[2023-11-25] MEDS: ACETAMINOPHEN TAB 650MG DOSE (2X325MG) PO PRN (09:08)
[2023-11-25] MEDS: SUCRALFATE SUSP 1GM/10ML UD PO SCH (09:08)
[2023-11-25 09:28] LABS: BASO # 0.1 10^3/uL (0.0-0.2); BASO % 0.7 % (0.0-1.0); EOS # 0.2 10^3/uL (0.0-0.5); EOS % 2.2 % (0.0-3.0); HEMATOCRIT 36.1 % (36.0-47.0); LYMPH # 2.4 10^3/uL (1.5-5.0); LYMPH % 35.5 % (24.0-44.0); MEAN CORPUSCULAR HEMOGLOBIN 30.3 pg (27.0-33.0); MEAN CORPUSCULAR HGB CONC 33.2 g/dl (32.0-36.5); MEAN CORPUSCULAR VOLUME 91.2 fl (80.0-96.0); MONO # 0.4 10^3/uL (0.0-0.8); MONO % 5.5 % (2.0-8.0); NEUTROPHILS # 3.7 10^3/uL (1.5-8.5); NEUTROPHILS % 55.8 % (36.0-66.0); PLATELET COUNT, AUTOMATED 229 10^3/uL (150-450); RED BLOOD COUNT 3.96 10^6/uL (4.00-5.40); WHITE BLOOD COUNT 6.7 10^3/uL (4.0-10.0)
[2023-11-25 09:53] LABS: ALKALINE PHOSPHATASE 64 U/L (46-116); ALT/SGPT 14 U/L (7.0-40); AST/SGOT 11 U/L (<34); BILIRUBIN,TOTAL 0.3 MG/DL (0.3-1.2); BLOOD UREA NITROGEN 13 MG/DL (9-23); CALCIUM LEVEL 7.1 MG/DL (8.5-10.1); CARBON DIOXIDE LEVEL 25 MMOL/L (20-31); CHLORIDE LEVEL 110 MMOL/L (98-107); GLOMERULAR FILTRATION RATE > 60.0 (>51); GLUCOSE, FASTING 116 MG/DL (60-100); MAGNESIUM LEVEL 1.5 MG/DL (1.8-2.4); POTASSIUM SERUM 3.7 MMOL/L (3.5-5.1); SODIUM LEVEL 141 MMOL/L (136-145); TOTAL PROTEIN 5.2 G/DL (5.7-8.2)
[2023-11-25] MEDS: MAG SULF 1GM/100ML (MAG RUN) 1 GM in IV 1 EA IV SCH (13:49)
[2023-11-25] MEDS: traMADol 50 MG TAB PO PRN (18:20)
[2023-11-26] VITALS (8 sets, daily range): BP systolic 88–126; BP diastolic 50–72; TEMP 97.3–98.3; O2SAT 93–99
[2023-11-26] MEDS: NS 1,000 ML IV ONE (00:29)
[2023-11-26 05:52] LABS: BASO # 0.1 10^3/uL (0.0-0.2); BASO % 0.9 % (0.0-1.0); EOS # 0.2 10^3/uL (0.0-0.5); EOS % 2.2 % (0.0-3.0); HEMATOCRIT 34.2 % (36.0-47.0); HEMOGLOBIN 11.2 g/dl (12.0-15.5); LYMPH # 1.9 10^3/uL (1.5-5.0); LYMPH % 27.6 % (24.0-44.0); MEAN CORPUSCULAR HGB CONC 32.7 g/dl (32.0-36.5); MEAN CORPUSCULAR VOLUME 91.7 fl (80.0-96.0); MONO # 0.4 10^3/uL (0.0-0.8); MONO % 6.1 % (2.0-8.0); NEUTROPHILS # 4.2 10^3/uL (1.5-8.5); NEUTROPHILS % 62.9 % (36.0-66.0); PLATELET COUNT, AUTOMATED 215 10^3/uL (150-450); RED BLOOD COUNT 3.73 10^6/uL (4.00-5.40); WHITE BLOOD COUNT 6.7 10^3/uL (4.0-10.0)
[2023-11-26 06:15] LABS: BLOOD UREA NITROGEN 7 MG/DL (9-23); CALCIUM LEVEL 7.4 MG/DL (8.5-10.1); CARBON DIOXIDE LEVEL 25 MMOL/L (20-31); CHLORIDE LEVEL 113 MMOL/L (98-107); CREATININE FOR GFR 0.73 MG/DL (0.55-1.30); GLOMERULAR FILTRATION RATE > 60.0 (>51); GLUCOSE, FASTING 87 MG/DL (60-100); MAGNESIUM LEVEL 1.9 MG/DL (1.8-2.4); POTASSIUM SERUM 3.8 MMOL/L (3.5-5.1); SODIUM LEVEL 141 MMOL/L (136-145)
[2023-11-26] MEDS ORDERED: CARA1TAB6 PO (10:06)
== END 2023-11-26 12:35 | disposition home or self-care (01) | DRG 204 ==
LOC: M ED 10:41 → M ED INP 23:42 → M PCU 11-25 13:01
PROVIDERS: ADMIT Family Medicine; ATTEND Internal Medicine
PROC: B246ZZZ Ultrasonography of Right and Left Heart (ICD-10-PCS; principal; 2023-11-25)
DX: I95.1 Orthostatic hypotension (principal); Z86.74 Personal history of sudden cardiac arrest; E83.42 Hypomagnesemia; E11.9 Type 2 diabetes mellitus without complications; I10 Essential (primary) hypertension; E78.5 Hyperlipidemia, unspecified; J44.9 Chronic obstructive pulmonary disease, unspecified; M54.9 Dorsalgia, unspecified; G89.29 Other chronic pain; I25.10 Atherosclerotic heart disease of native coronary artery without angina pectoris; K21.9 Gastro-esophageal reflux disease without esophagitis; R51.9 Headache, unspecified; F39 Unspecified mood [affective] disorder; E86.0 Dehydration; Z95.5 Presence of coronary angioplasty implant and graft; Z98.1 Arthrodesis status; Z79.82 Long term (current) use of aspirin; Z79.84 Long term (current) use of oral hypoglycemic drugs; Z79.899 Other long term (current) drug therapy

== ENCOUNTER → 2023-12-01 | Outpatient (REF) | payer OTHER ==
[~2023-12-01] MED LIST changes: +ASPI81CH33 PO; +CARA1TAB6 PO; +CARV3.12 PO; +ENTR1TAB PO; +FARX1TAB3 PO; +METF-839 PO; +MIRA3350 PO; +NITR0.4S14 SL; +PANT40TA29 PO; +POLY17PO18 PO; +SEMA0.257 SC; +SPIR-10 PO; +TRAM50TA2 PO
[2023-12-01 13:55] LABS: FERRITIN 16.4 NG/ML (7.3-270.7); IRON (FE) 94 UG/DL (50-170); PERCENT SATURATION 27.2 % (13.2-45.0); TOTAL IRON BINDING CAPACITY 345 UG/DL (250-425)
[2023-12-01 13:56] LABS: VITAMIN B12 LEVEL 422 PG/ML (211-911)
[2023-12-01 14:00] LABS: BASO # 0.1 10^3/uL (0.0-0.2); BASO % 0.7 % (0.0-1.0); EOS # 0.2 10^3/uL (0.0-0.5); EOS % 2.7 % (0.0-3.0); HEMOGLOBIN 14.3 g/dl (12.0-15.5); LYMPH # 2.6 10^3/uL (1.5-5.0); LYMPH % 31.2 % (24.0-44.0); MEAN CORPUSCULAR HEMOGLOBIN 30.3 pg (27.0-33.0); MEAN CORPUSCULAR HGB CONC 33.3 g/dl (32.0-36.5); MEAN CORPUSCULAR VOLUME 91.1 fl (80.0-96.0); MONO # 0.6 10^3/uL (0.0-0.8); MONO % 7.4 % (2.0-8.0); NEUTROPHILS # 4.8 10^3/uL (1.5-8.5); NEUTROPHILS % 57.8 % (36.0-66.0); PLATELET COUNT, AUTOMATED 273 10^3/uL (150-450); RED BLOOD COUNT 4.72 10^6/uL (4.00-5.40); WHITE BLOOD COUNT 8.3 10^3/uL (4.0-10.0)
[2023-12-01 14:02] LABS: ALBUMIN 4.1 G/DL (3.2-5.2); ALKALINE PHOSPHATASE 83 U/L (46-116); ALT/SGPT 28 U/L (7.0-40); AST/SGOT 12 U/L (<34); BILIRUBIN,TOTAL 0.4 MG/DL (0.3-1.2); BLOOD UREA NITROGEN 14 MG/DL (9-23); CALCIUM LEVEL 9.9 MG/DL (8.5-10.1); CARBON DIOXIDE LEVEL 25 MMOL/L (20-31); CHLORIDE LEVEL 108 MMOL/L (98-107); CREATININE FOR GFR 0.98 MG/DL (0.55-1.30); FOLATE 6.5 NG/ML (>5.4); GLOMERULAR FILTRATION RATE > 60.0 (>51); GLUCOSE, FASTING 86 MG/DL (60-100); MAGNESIUM LEVEL 1.7 MG/DL (1.8-2.4); SODIUM LEVEL 139 MMOL/L (136-145); TOTAL PROTEIN 6.9 G/DL (5.7-8.2)
[2023-12-01 14:22] LABS: HEMOGLOBIN A1c 5.8 % (4.0-6.0)
== END ==
LOC: M SFHCADAM 08:32
PROVIDERS: ATTEND Physician Assistant
DX: E11.9 Type 2 diabetes mellitus without complications (principal); K29.50 Unspecified chronic gastritis without bleeding; I11.0 Hypertensive heart disease with heart failure; E83.42 Hypomagnesemia

== ENCOUNTER 2024-01-08 10:21 | Day surgery (SDC) | payer OTHER ==
[~2024-01-08] VITALS: Ht 162.6 cm; Wt 68.4 kg
[~2024-01-08 10:21] MED LIST changes: +LOSA25TA13 PO
[2024-01-08] MEDS: NS 1,000 ML IV ONE (10:39)
[2024-01-08] MEDS ORDERED: propofoL 200 MG/20 ML VIAL As Ordered ONE (12:08)
[2024-01-08] MEDS ORDERED: LIDOCAINE 2% 100MG/5ML SDV (FOR ANES.) As Ordered ONE (12:08)
[2024-01-08] MEDS ORDERED: fentaNYL 100 MCG/2 ML INJECTION As Ordered ONE (12:08)
[2024-01-08 12:49] VITALS: TEMP 96.9
[2024-01-08 13:02] VITALS: BP 117/69; O2SAT 96
== END 2024-01-08 13:09 | disposition home or self-care (01) ==
LOC: M OPP 10:21
PROVIDERS: ATTEND Internal Medicine Gastroenterology
DX: R11.2 Nausea with vomiting, unspecified (principal); B96.81 Helicobacter pylori [H. pylori] as the cause of diseases classified elsewhere; K29.00 Acute gastritis without bleeding; K22.89 Other specified disease of esophagus; I25.2 Old myocardial infarction; E11.9 Type 2 diabetes mellitus without complications; I10 Essential (primary) hypertension; E78.5 Hyperlipidemia, unspecified; J44.9 Chronic obstructive pulmonary disease, unspecified; Z79.899 Other long term (current) drug therapy; Z91.030 Bee allergy status
CPT/HCPCS: 43239; 88305; J3010

== ENCOUNTER → 2024-01-26 | Outpatient (REF) | payer OTHER | LOC: M SFHCADAM 12:49 | PROVIDERS: ATTEND Physician Assistant | DX: J00 Acute nasopharyngitis [common cold] (principal) ==

== ENCOUNTER → 2024-01-29 | Outpatient (CLI) | payer OTHER ==
[~2024-01-29] MED LIST changes: +PROHANCE 279.3MG/ML 15ML VIAL As Ordered ONE
== END ==
LOC: M RAD 08:06
PROVIDERS: ATTEND Pain Medicine Interventional Pain Medicine
DX: M96.1 Postlaminectomy syndrome, not elsewhere classified (principal); M51.24 Other intervertebral disc displacement, thoracic region
CPT/HCPCS: 72157; A9576

== ENCOUNTER → 2024-03-08 | Outpatient (REF) | payer OTHER ==
[~2024-03-08] MED LIST changes: -CYCL5TAB; +CYCL5TAB4; -PROHANCE 279.3MG/ML 15ML VIAL As Ordered ONE
[2024-03-08 14:46] LABS: ALBUMIN 4.4 G/DL (3.2-5.2); ALKALINE PHOSPHATASE 111 U/L (35-104); ALT/SGPT 24 U/L (7.0-40); AST/SGOT 12 U/L (<34); BILIRUBIN,TOTAL 0.3 MG/DL (0.3-1.2); BLOOD UREA NITROGEN 18 MG/DL (9-23); CALCIUM LEVEL 9.7 MG/DL (8.5-10.1); CARBON DIOXIDE LEVEL 30 MMOL/L (20-31); CHLORIDE LEVEL 104 MMOL/L (98-107); CHOLESTEROL LEVEL 156 MG/DL (<200); CHOLESTEROL RISK RATIO 2.97 (<5); CREATININE FOR GFR 0.79 MG/DL (0.55-1.30); GLOMERULAR FILTRATION RATE > 60.0 (>51); GLUCOSE, FASTING 88 MG/DL (60-100); HDL CHOLESTEROL 52.5 MG/DL (>40); LDL CHOLESTEROL 75.7 MG/DL (<100); MAGNESIUM LEVEL 1.8 MG/DL (1.8-2.4); NON-HDL-C 103.5 MG/DL; POTASSIUM SERUM 4.1 MMOL/L (3.5-5.1); SODIUM LEVEL 140 MMOL/L (136-145); TOTAL PROTEIN 7.9 G/DL (5.7-8.2); TRIGLYCERIDES LEVEL 139 MG/DL (<150)
[2024-03-08 14:48] LABS: FREE T4 1.18 NG/DL (0.89-1.76); THYROID STIMULATING HORMONE 1.656 uIU/ML (0.55-4.78)
[2024-03-08 14:50] LABS: BASO # 0.1 10^3/uL (0.0-0.2); BASO % 0.8 % (0.0-1.0); EOS # 0.3 10^3/uL (0.0-0.5); EOS % 3.1 % (0.0-3.0); HEMATOCRIT 47.3 % (36.0-47.0); HEMOGLOBIN 15.3 g/dl (12.0-15.5); LYMPH # 2.3 10^3/uL (1.5-5.0); LYMPH % 27.4 % (24.0-44.0); MEAN CORPUSCULAR HEMOGLOBIN 30.5 pg (27.0-33.0); MEAN CORPUSCULAR HGB CONC 32.3 g/dl (32.0-36.5); MEAN CORPUSCULAR VOLUME 94.2 fl (80.0-96.0); MONO # 0.7 10^3/uL (0.0-0.8); MONO % 8.1 % (2.0-8.0); NEUTROPHILS % 60.4 % (36.0-66.0); PLATELET COUNT, AUTOMATED 323 10^3/uL (150-450); RED BLOOD COUNT 5.02 10^6/uL (4.00-5.40); WHITE BLOOD COUNT 8.4 10^3/uL (4.0-10.0)
[2024-03-08 15:50] LABS: HEMOGLOBIN A1c 5.6 % (4.0-6.0)
== END ==
LOC: M SFHCADAM 09:15
PROVIDERS: ATTEND Physician Assistant
DX: E83.42 Hypomagnesemia (principal); I50.42 Chronic combined systolic (congestive) and diastolic (congestive) heart failure; I11.0 Hypertensive heart disease with heart failure; E11.9 Type 2 diabetes mellitus without complications; I25.10 Atherosclerotic heart disease of native coronary artery without angina pectoris; J00 Acute nasopharyngitis [common cold]

== ENCOUNTER → 2024-03-31 | Outpatient (CLI) | payer OTHER ==
[~2024-03-31] MED LIST changes: +ISOVUE-370 76% 100ML VIAL As Ordered ONE
== END ==
LOC: M RAD 13:24
PROVIDERS: ATTEND Physician Assistant
DX: R91.1 Solitary pulmonary nodule (principal)
CPT/HCPCS: 71275; Q9967

== ENCOUNTER → 2024-04-07 | Outpatient (CLI) | payer OTHER ==
[~2024-04-07] MED LIST changes: -ISOVUE-370 76% 100ML VIAL As Ordered ONE
== END ==
LOC: M WHC 08:59
PROVIDERS: ATTEND Physician Assistant Medical
DX: R10.9 Unspecified abdominal pain (principal); K76.0 Fatty (change of) liver, not elsewhere classified

== ENCOUNTER → 2024-04-09 | Outpatient (REF) | payer OTHER | LOC: M LAB REF 17:07 | PROVIDERS: ATTEND Physician Assistant Medical | DX: Z11.2 Encounter for screening for other bacterial diseases (principal); B96.81 Helicobacter pylori [H. pylori] as the cause of diseases classified elsewhere ==

== ENCOUNTER 2024-08-30 14:29 | Emergency (ER) | payer MEDICAID, OTHER ==
[~2024-08-30] VITALS: Ht 162.6 cm; Wt 64.5 kg
[~2024-08-30 14:29] MED LIST changes: -BUPR-597 PO; +BUPR-766 PO
[2024-08-30 14:48] VITALS: TEMP 96.4
[2024-08-30 15:07] LABS: BASO # 0.1 10^3/uL (0.0-0.2); BASO % 0.8 % (0.0-1.0); EOS # 0.3 10^3/uL (0.0-0.5); EOS % 2.5 % (0.0-3.0); HEMATOCRIT 40.6 % (36.0-47.0); HEMOGLOBIN 13.9 g/dl (12.0-15.5); LYMPH % 30.2 % (24.0-44.0); MEAN CORPUSCULAR HGB CONC 34.2 g/dl (32.0-36.5); MEAN CORPUSCULAR VOLUME 87.7 fl (80.0-96.0); MONO # 0.8 10^3/uL (0.0-0.8); MONO % 7.8 % (2.0-8.0); NEUTROPHILS # 5.7 10^3/uL (1.5-8.5); NEUTROPHILS % 58.6 % (36.0-66.0); PLATELET COUNT, AUTOMATED 286 10^3/uL (150-450); RED BLOOD COUNT 4.63 10^6/uL (4.00-5.40); WHITE BLOOD COUNT 9.8 10^3/uL (4.0-10.0)
[2024-08-30 15:38] LABS: BLOOD UREA NITROGEN 21 MG/DL (9-23); CALCIUM LEVEL 9.1 MG/DL (8.5-10.1); CARBON DIOXIDE LEVEL 25 MMOL/L (20-31); CHLORIDE LEVEL 106 MMOL/L (98-107); CK-MB VALUE MASS < 1.0 NG/ML (<3.6); CREATININE FOR GFR 0.79 MG/DL (0.55-1.30); GLOMERULAR FILTRATION RATE 86.1 (>51); GLUCOSE, FASTING 96 MG/DL (60-100); POTASSIUM SERUM 3.3 MMOL/L (3.5-5.1); SODIUM LEVEL 141 MMOL/L (136-145)
[2024-08-30 15:43] LABS: CPK CREATINE PHOSPHOKINASE 140 U/L (34-145); MB/CK RELATIVE INDEX 0.71 (< OR =4)
[2024-08-30] MEDS: ONDANSETRON 4MG 2ML VIAL IV ONE (16:37)
[2024-08-30 16:41] LABS: CK-MB VALUE MASS < 1.0 NG/ML (<3.6)
[2024-08-30 16:48] LABS: CPK CREATINE PHOSPHOKINASE 123 U/L (34-145); MB/CK RELATIVE INDEX 0.81 (< OR =4)
[2024-08-30] MEDS ORDERED: CYCL-707 PO (17:48)
[2024-08-30] MEDS ORDERED: IBUP-1022 PO (17:48)
[2024-08-30] MEDS: CYCLOBENZAPRINE 10MG TABLET PO ONE (17:49)
[2024-08-30] MEDS: IBUPROFEN 600MG TAB PO ONE (17:49)
[2024-08-30 17:59] VITALS: O2SAT 99
[2024-08-30 18:00] VITALS: BP 123/68
== END 2024-08-30 18:21 | disposition home or self-care (01) ==
LOC: EDBD 14:29 → M ED 14:29
DX: S13.4XXA Sprain of ligaments of cervical spine, initial encounter (principal); Y92.9 Unspecified place or not applicable; Y93.9 Activity, unspecified; Y99.9 Unspecified external cause status; V49.40XA Driver injured in collision with unspecified motor vehicles in traffic accident, initial encounter; I44.4 Left anterior fascicular block; E11.9 Type 2 diabetes mellitus without complications; J44.9 Chronic obstructive pulmonary disease, unspecified; F41.9 Anxiety disorder, unspecified; Z91.030 Bee allergy status; Z79.1 Long term (current) use of non-steroidal anti-inflammatories (NSAID); Z79.84 Long term (current) use of oral hypoglycemic drugs; Z79.899 Other long term (current) drug therapy
CPT/HCPCS: 70450; 70486; 71045; 72125; 80048; 82550; 82553; 84484; 85025; 93005; 93041; 94760; 96374; 99285; J2405

== ENCOUNTER → 2024-10-28 | Outpatient (REF) | payer OTHER ==
[~2024-10-28] MED LIST changes: +IBUP-1022 PO
[2024-10-28 14:06] LABS: BASO # 0.1 10^3/uL (0.0-0.2); BASO % 0.8 % (0.0-1.0); EOS # 0.3 10^3/uL (0.0-0.5); EOS % 3.8 % (0.0-3.0); LYMPH # 2.5 10^3/uL (1.5-5.0); LYMPH % 34.0 % (24.0-44.0); MONO # 0.7 10^3/uL (0.0-0.8); MONO % 9.4 % (2.0-8.0); NEUTROPHILS # 3.8 10^3/uL (1.5-8.5); NEUTROPHILS % 51.6 % (36.0-66.0); PLATELET COUNT, AUTOMATED 272 10^3/uL (150-450)
[2024-10-28 14:12] LABS: ALT/SGPT 41.0 U/L (7.0-40); AST/SGOT 27.0 U/L (<34); CALCIUM LEVEL 8.8 MG/DL (8.5-10.1); CARBON DIOXIDE LEVEL 26.0 MMOL/L (20-31); CHLORIDE LEVEL 107.0 MMOL/L (98-107); CHOLESTEROL LEVEL 117.0 MG/DL (<200); CHOLESTEROL RISK RATIO 2.36 (<5); CREATININE FOR GFR 0.9 MG/DL (0.55-1.30); FREE T4 1.02 NG/DL (0.89-1.76); GLOMERULAR FILTRATION RATE 73.6 (>51); LDL CHOLESTEROL 54.1 MG/DL (<100); MAGNESIUM LEVEL 1.7 MG/DL (1.8-2.4); NON-HDL-C 67.5 MG/DL; POTASSIUM SERUM 4.6 MMOL/L (3.5-5.1); SODIUM LEVEL 143.0 MMOL/L (136-145); TRIGLYCERIDES LEVEL 67.0 MG/DL (<150)
[2024-10-28 14:38] LABS: ESTIMATED AVERAGE GLUCOSE 117.0 MG/DL (60-110)
== END ==
LOC: M SFHCADAM 08:39
PROVIDERS: ATTEND Physician Assistant
DX: E11.9 Type 2 diabetes mellitus without complications (principal); I25.10 Atherosclerotic heart disease of native coronary artery without angina pectoris; I11.0 Hypertensive heart disease with heart failure; I50.42 Chronic combined systolic (congestive) and diastolic (congestive) heart failure; E83.42 Hypomagnesemia; K76.0 Fatty (change of) liver, not elsewhere classified

== ENCOUNTER 2024-12-07 11:33 | Emergency (ER) | payer MEDICAID, OTHER ==
[~2024-12-07] VITALS: Ht 160 cm; Wt 68.6 kg
[2024-12-07 12:14] LABS: BASO # 0.1 10^3/uL (0.0-0.2); BASO % 0.5 % (0.0-1.0); EOS # 0.2 10^3/uL (0.0-0.5); EOS % 2.5 % (0.0-3.0); LYMPH # 2.8 10^3/uL (1.5-5.0); LYMPH % 30.4 % (24.0-44.0); MONO # 0.7 10^3/uL (0.0-0.8); MONO % 7.3 % (2.0-8.0); NEUTROPHILS # 5.4 10^3/uL (1.5-8.5); NEUTROPHILS % 59.1 % (36.0-66.0); PLATELET COUNT, AUTOMATED 269 10^3/uL (150-450)
[2024-12-07 12:41] LABS: CALCIUM LEVEL 8.5 MG/DL (8.3-10.6); CARBON DIOXIDE LEVEL 29.0 MMOL/L (20-31); CHLORIDE LEVEL 100.0 MMOL/L (98-107); CK-MB VALUE MASS 1.1 NG/ML (<3.6); CREATININE FOR GFR 0.95 MG/DL (0.55-1.30); GLOMERULAR FILTRATION RATE 68.6 (>45); POTASSIUM SERUM 3.6 MMOL/L (3.5-5.1); SODIUM LEVEL 141.0 MMOL/L (136-145)
[2024-12-07 12:49] LABS: CPK CREATINE PHOSPHOKINASE 160.0 U/L (34-145); MB/CK RELATIVE INDEX 0.68 (< OR =4)
[2024-12-07] MEDS ORDERED: ISOVUE-370 76% 100 ML VIAL As Ordered ONE (13:08)
[2024-12-07 13:34] LABS: ALT/SGPT 43.0 U/L (7.0-40); AST/SGOT 31.0 U/L (<34); MAGNESIUM LEVEL 1.6 MG/DL (1.8-2.4)
[2024-12-07 13:36] LABS: CK-MB VALUE MASS 1.5 NG/ML (<3.6); CPK CREATINE PHOSPHOKINASE 148.0 U/L (34-145); MB/CK RELATIVE INDEX 1.01 (< OR =4)
[2024-12-07] MEDS: MAG SULF 1GM/100ML (MAG RUN) 1 GM in IV 1 EA IV ONE (14:04)
[2024-12-07] MEDS ORDERED: NS (Normal Saline) 0.9% 1,000 ML IV ONE (14:25)
[2024-12-07] MEDS: NS 500 ML IV ONE (14:37)
[2024-12-07] MEDS: ONDANSETRON 4MG 2ML VIAL IV ONE (15:34)
[2024-12-07 16:34] LABS: CK-MB VALUE MASS < 1.0 NG/ML (<3.6)
[2024-12-07 16:36] LABS: CPK CREATINE PHOSPHOKINASE 131 U/L (34-145)
[2024-12-07 19:00] VITALS: BP 104/63; O2SAT 94
[2024-12-07 19:29] VITALS: TEMP 98.6
== END 2024-12-07 19:30 | disposition home or self-care (01) ==
LOC: M ED 11:33
DX: R07.89 Other chest pain (principal); E83.42 Hypomagnesemia; I95.1 Orthostatic hypotension; J98.11 Atelectasis; R91.1 Solitary pulmonary nodule; I25.2 Old myocardial infarction; E11.9 Type 2 diabetes mellitus without complications; E78.5 Hyperlipidemia, unspecified; J44.9 Chronic obstructive pulmonary disease, unspecified; Z87.891 Personal history of nicotine dependence; Z91.030 Bee allergy status; Z79.1 Long term (current) use of non-steroidal anti-inflammatories (NSAID); Z79.84 Long term (current) use of oral hypoglycemic drugs; Z79.899 Other long term (current) drug therapy
CPT/HCPCS: 71045; 71275; 80048; 80076; 82550; 82553; 83690; 83735; 83880; 84145; 84484; 85025; 87486; 87581; 87633; 87798; 93005; 93041; 94760; 96374; 96375; 99285; J2405; J3475; Q9967

== ENCOUNTER → 2025-02-10 | Outpatient (REF) | payer OTHER ==
[~2025-02-10] MED LIST changes: -IBUP-1022 PO; +IBUP600T42 PO
[2025-02-10 14:37] LABS: PLATELET COUNT, AUTOMATED 320 10^3/uL (150-450)
[2025-02-10 14:53] LABS: ALT/SGPT 31.0 U/L (7.0-40); AST/SGOT 23.0 U/L (<34); CALCIUM LEVEL 9.9 MG/DL (8.3-10.6); CARBON DIOXIDE LEVEL 28.0 MMOL/L (20-31); CHLORIDE LEVEL 102.0 MMOL/L (98-107); CHOLESTEROL LEVEL 157.0 MG/DL (<200); CHOLESTEROL RISK RATIO 2.36 (<5); CREATININE FOR GFR 0.92 MG/DL (0.55-1.30); FREE T4 1.13 NG/DL (0.89-1.76); GLOMERULAR FILTRATION RATE 71.3 (>45); LDL CHOLESTEROL 73.3 MG/DL (<100); NON-HDL-C 90.7 MG/DL; POTASSIUM SERUM 4.3 MMOL/L (3.5-5.1); SODIUM LEVEL 141.0 MMOL/L (136-145); TOTAL 25(OH) VITAMIN D 28.6 NG/ML (20.0-100.0); TRIGLYCERIDES LEVEL 87.0 MG/DL (<150)
[2025-02-10 15:21] LABS: ESTIMATED AVERAGE GLUCOSE 120.0 MG/DL (60-110)
== END ==
LOC: M SFHCADAM 09:28
PROVIDERS: ATTEND Physician Assistant
DX: F41.9 Anxiety disorder, unspecified (principal); I25.10 Atherosclerotic heart disease of native coronary artery without angina pectoris; E11.9 Type 2 diabetes mellitus without complications; I11.0 Hypertensive heart disease with heart failure; I50.42 Chronic combined systolic (congestive) and diastolic (congestive) heart failure; K76.0 Fatty (change of) liver, not elsewhere classified; F32.A Depression, unspecified; M47.816 Spondylosis without myelopathy or radiculopathy, lumbar region; R10.A2 Flank pain, left side; J32.0 Chronic maxillary sinusitis; R31.29 Other microscopic hematuria

== ENCOUNTER → 2025-02-14 | Outpatient (CLI) | payer OTHER | LOC: M RAD 08:25 | PROVIDERS: ATTEND Physician Assistant | DX: R10.A2 Flank pain, left side (principal); R31.29 Other microscopic hematuria ==